=== PATIENT | female | born 1950 | race Caucasian/White ===

== ENCOUNTER 2022-12-19 09:55 | Outpatient (CLI) | payer MEDICARE, SELFPAY | END 2022-12-19 09:56 | disposition home or self-care (01) | LOC: AMB 12-21 05:31 | PROVIDERS: PCP Family Medicine; Visit Provider Family Medicine | DX: R53.1 Weakness (principal) | CPT/HCPCS: A0998 ==

== ENCOUNTER 2023-09-03 16:09 | Outpatient (CLI) | payer OTHER, SELFPAY | END 2023-09-03 16:10 | disposition home or self-care (01) | LOC: AMB 09-18 15:32 | PROVIDERS: PCP Family Medicine; Visit Provider Family Medicine | DX: R53.1 Weakness (principal) | CPT/HCPCS: A0998 ==

== ENCOUNTER 2024-08-22 21:16 | Outpatient (CLI) | payer OTHER, SELFPAY | END 2024-08-22 21:17 | disposition home or self-care (01) | LOC: AMB 08-25 14:50 | PROVIDERS: PCP Family Medicine; Visit Provider Family Medicine | DX: R53.1 Weakness (principal) | CPT/HCPCS: A0998 ==

== ENCOUNTER 2024-09-16 10:44 | Outpatient (CLI) | payer OTHER, SELFPAY | END 2024-09-16 10:45 | disposition home or self-care (01) | LOC: AMB 09-19 11:05 | PROVIDERS: PCP Family Medicine; Visit Provider Family Medicine | DX: R53.1 Weakness (principal); R62.7 Adult failure to thrive | CPT/HCPCS: A0425; A0429 ==

== ENCOUNTER 2024-09-16 11:11 | Inpatient (IN) | payer OTHER, SELFPAY ==
[2024-09-16] VITALS (23 sets, daily range): BP systolic 100–124; BP diastolic 57–90; PULSE 78–105; RESP 14–37; TEMP 36.3–36.7; O2SAT 92–99; BMI 31.6; BMI 29.7
--- NOTE | 2024-09-16 11:30 | ED.GENADULT ---
HPI - General Adult General Time Seen by Provider: 11:34 Date Seen: 09/16/24 Chief complaint: Neuro Symptoms/Altered Deficit Stated complaint: Failure to thrive Time Seen by Provider: 09/16/24 11:13 Source: patient, EMS and RN notes reviewed Mode of arrival: EMS Limitations: no limitations History of Present Illness HPI narrative: This 74-year-old female is brought in by EMS from her independent apartment at [address] after welfare check was called. Patient is known to have had an apartment well for checked 2 weeks ago. People from the facility reportedly had not seen her. She states she talked to her son last night, [facility] has the same phone number is we do for her son, it has been disconnected. Patient thinks that maybe her son did not pay his phone bill. Her phone is not charged and thus we cannot access it to see when the last time she talked to her son was, we are working on getting her phone charged. Per EMS, she was in feces, feces were all over the apartment and she was sitting in feces/urine. She had juice spilled around her mouth and chest that was dried. Her speech is noted to be slurred, she states it is been that way for couple of days. On her last apartment checked 2 weeks ago, patient was standing when they came in and went to lie down. Her blood sugar was 175, she is denying any pain but states she has been sick. She is a difficult to understand and a poor historian at this point. She does not get any meals per report, states she has been making her own meals. She cannot tell me the last time she went to the grocery store. Related Data Home Medications ?Medication ?Instructions ?Recorded ?Confirmed apixaban 5 mg tablet (Eliquis) 5 mg PO BID 09/16/24 09/16/24 bupropion HCl 100 mg tablet 100 mg PO TID 09/16/24 09/16/24 duloxetine 30 mg capsule,delayed 30 mg PO HS 09/16/24 09/16/24 release duloxetine 30 mg capsule,delayed 60 mg PO QAM 09/16/24 09/16/24 release famotidine 40 mg tablet 40 mg PO BID 09/16/24 09/16/24 gabapentin 300 mg capsule 1,200 mg PO HS 09/16/24 09/16/24 gabapentin 300 mg capsule 300 mg PO DAILY@12 03/07/25 03/07/25 gabapentin 300 mg capsule 900 mg PO QAM 09/16/24 09/16/24 hydrochlorothiazide 12.5 mg tablet 12.5 mg PO DAILY 09/16/24 09/16/24 metoprolol succinate 25 mg 25 mg PO DAILY 09/16/24 09/16/24 tablet,extended release 24 hr pantoprazole 40 mg tablet,delayed 40 mg PO BID 09/16/24 09/16/24 release Allergies Allergy/AdvReac Type Severity Reaction Status Date / Time No Known Drug Allergies Allergy Verified 09/16/24 11:29 Review of Systems Status of ROS: Reports: 6 or more systems reviewed and unremarkable except as noted in History and below Exam Const: Vital Signs, click to edit/add: Vital Signs - 24 hr 09/16/24 11:23 09/16/24 11:31 Pulse Rate [Apical ] 87 Respiratory Rate 14 Blood Pressure [Ri ght Upper Arm] 115/70 Pulse Oximetry 92 96 Oxygen Delivery Me thod Room Air Patient is disheveled, buttock/perineum covered in feces and urine on clothing as well. She is otherwise alert and interactive, speech is slurred, she has some type of reddish substance down the corner of her left face in onto her chin and chest. Lips are not cracked her dry but her oropharynx is most certainly very dry. She does seem to have symmetrical facial function, can close her eyes, conjugate gaze, sclera clear. Dentition in poor repair. Neck is supple, no masses noted. Breathing easily on room air, no tachypnea accessory muscle use, lungs are clear, good air entry, no wheezing or crackles. CV sounds regular, no murmur noted, normal S1-S2. Abdomen is soft, nontender, do not feel any masses, no distension, certainly no rebound or guarding. Her lower extremities are thicker but there is no pretibial edema, no skin changes noted. She can lift each leg off the bed. Strength about her toes and ankle dorsiflexion and plantar flexion are 5/5 and symmetric. Feet are warm. Her nail beds on her fingers looked dusky but her hands are warm and has good radial pulses. Strength testing is 5/5 and symmetric in her hands, can do normal albeit somewhat slower alternating finger movements. Documenting provider has reviewed patient's vital signs: yes Course Course ED Course: Patient has potentially weakness, potentially altered mental status, potentially cerebrovascular issue. Will start with noncontrast head CT. We absolutely do not have a last known well, could be up to 2 weeks. We are working on charging her phone to see if we can get any further information from her son. Will do full complement of labs, will get a portable chest x-ray. Am going to give her 500 mL normal saline as she certainly on physical examination has not been getting adequate oral intake, or pharynx is most definitely dry. Will consider infectious etiology, metabolic etiology as well. She will be on cardiac monitoring and pulse oximetry, obtain EKG as well. Reevaluation(s) Time of Reevaluation #1: 14:27 Reevaluation #1: Have spoken with the hospitalist Dr. Henderson. There is a mass on her CT, went back and patient really does not have any appreciable abdominal pain on examination. I did discuss with her advanced directives. She states she has paperwork at home but has not gotten it in. Did review with her that in the event something happen to her heart or lungs while at the hospital which she want compressions/chest compressions, intubation. She was adamant that she did not want this level of intervention, request to be DNR DNI. She will be going to the floor. The [facility] was here to see her. They did relate to me that they had gotten many reports on her over the last few months but today they have enough information. She states the apartment was in quite terrible shape. She did take pictures. They will be working with our social professionals while the patient is here. Consultations Consultation #1: Have spoken with hospitalist Stella Gomez. We reviewed the case. Instead of doing a portable chest x-ray, she is likely to image with chest abdomen pelvis thus we will not do the portable chest. Reviewed that I did not do a blood culture as she was meeting no criteria for requiring this based on her initial presentation. Her vital signs were stable, no fever. White count has come back elevated, she may order this if she would like this done. There certainly is very likely up possible infectious agent here or white blood count could be elevated due to do marginalization and dehydration. Patient has an acute kidney injury. Have subsequently ordered another L of normal saline. Nursing staff did try to do an in and out catheterization and there was no urine. This will still need to be collected. They do accept her on the floor. We will let the hospitalist take over management from this point and further workup. We have not been able to delineate any time frame on her symptoms, really do not know a last known well but suspect it is of some length. Patient may require further advanced head imaging but does not need to happen imminently. Time: 13:26 Vital Signs Vital signs: Initial Vital Signs Pulse Rate 87 09/16/24 11:23 Pulse Rhythm Regular 09/16/24 11:23 Respiratory Rate 14 09/16/24 11:23 Blood Pressure 115/70 09/16/24 11:23 Blood Pressure Mean 85 09/16/24 11:23 Pulse Oximetry 92 09/16/24 11:23 Oxygen Delivery Method Room Air 09/16/24 11:23 Vital Signs Pulse Rate 87 09/16/24 11:23 Respiratory Rate 14 09/16/24 11:23 Blood Pressure 115/70 09/16/24 11:23 Pulse Oximetry 92 09/16/24 11:23 Oxygen Delivery Method Room Air 09/16/24 11:23 Pulse Rate 87 09/16/24 11:23 Respiratory Rate 14 09/16/24 11:23 Blood Pressure 115/70 09/16/24 11:23 Pulse Oximetry 96 09/16/24 11:31 Oxygen Delivery Method Room Air 09/16/24 11:23 Medications Administered Medications: Discontinued Medications Generic Name Dose Route Start Last Admin Trade Name Freq PRN Reason Stop Dose Admin Sodium Chloride 500 mls @ 500 mls/hr 09/16/24 12:09 09/16/24 12:37 0.9 % Sodium Chloride 500 Ml IV 09/16/24 13:08 Infused .Q1H ONE Infusion Medical Decision Making Lab Data Lab results reviewed: Yes I reviewed the patient's lab results Labs: Lab Results 09/16/24 09/16/24 09/16/24 Range/Units 12:15 12:30 14:11 WBC 18.08 H (4.50-11.00) K/uL RBC 5.25 H (4.00-5.20) m/uL Hgb 15.6 (12.0-16.0) gm/dL Hct 46.0 (33.0-51.0) % MCV 88 (80-100) fL MCH 30 (26-34) pg MCHC 34 (32-36) gm/dL RDW Coeff of Mague 21.1 H (11.5-15.5) % Plt Count 434 (140-440) K/uL Neut % (Auto) 72.3 H (42.0-72.0) % Lymph % (Auto) 16.9 L (20-44) % [place] % (Auto) 10.0 (0.0-11.0) % Eos % (Auto) 0.1 (0.0-7.0) % Baso % (Auto) 0.1 (0.0-3.0) % Neut # (Auto) 13.10 H (1.7-7.0) K/uL Lymph # (Auto) 3.10 H (0.90-2.90) K/uL [place] # (Auto) 1.80 H (0.00-0.90) K/UL Eos # (Auto) 0.00 (0.00-0.50) K/uL Baso # (Auto) 0.00 (0.00-0.30) K/uL Abs Immat Gran (auto) 0.10 (0.00-0.30) K/uL Imm/Tot Granulo (auto) 0.6 % Diff Slide Review Acceptable Review (Acceptable) INR 1.12 H (0.91-1.10) APTT 28 (23-33) Seconds Sodium 134 L (135-149) mmol/L Potassium 3.8 (3.6-5.1) mmol/L Chloride 93 L (96-114) mmol/L Carbon Dioxide 29 (20-32) mmol/L Anion Gap 12 (7-15) mEq/L BUN 35 H (7-30) mg/dL Creatinine 2.6 H (0.5-1.5) mg/dL Estimated Creat Clear 19.73 Estimated GFR 19 ml/min Glucose 112 (60-115) mg/dL Lactate 2.5 H (0.5-1.9) mmol/L Calcium 11.5 H (8.4-10.6) mg/dL Magnesium 1.9 (1.5-2.6) mg/dL Total Bilirubin 1.2 (0.1-1.5) mg/dL Direct Bilirubin 0.8 H (0.0-0.5) mg/dL AST 103 H (12-35) U/L ALT 22 (4-35) U/L Alkaline Phosphatase 180 H (40-150) U/L Total Creatine Kinase 220 H (41-117) U/L Troponin I < 0.01 L (0.01-0.04) ng/mL C-Reactive Protein 6.6 H (0.5-1.0) mg/dL NT-Pro-B Natriuret Pep 1120 pg/mL Total Protein 6.4 (6.0-8.3) g/dL Albumin 3.7 (3.3-5.0) g/dL TSH 1.240 (0.270-4.200) uIU/mL SARS-CoV-2 (PCR) Negative SARS-CoV-2 (Negative) Influenza Type A (PCR) Negative PCR FLU A (Negative) Influenza Type B (PCR) Negative PCR FLU B (Negative) RSV (PCR) Negative PCR RSV (Negative) Lab Acknowledgement Test Added New Spec Needed Imaging Data CT scan - head: Attestation: I have reviewed the pertinent imaging results. Radiologist's impression: Patient: JONELLE STONE Facility:?[facility] Patient ID:?[id number] Site Patient ID:?[id number]. Site :?[id number] Study:?CT-Head W/O-09/16/2024 11:57:26 AM Ordering Physician:Pham Atkins Final Report: INDICATION: Altered mental status TECHNIQUE: CT head without contrast. COMPARISON: None. FINDINGS: CSF spaces: Within normal limits for age. Brain parenchyma: Diffuse cerebral atrophy with intracranial bleed or mass effect. Vázquez-white differentiation is distinct. Low-density within the deep white matter. Skull base and calvarium: Left temporomandibular joint osteoarthritis. Patchy sinus opacification the visualized orbits are grossly unremarkable. No skull fractures. Atherosclerosis. IMPRESSION: 1. No intracranial bleed or mass effect. 2. Cerebral atrophy with nonspecific white matter disease, likely microangiopathy. Please note that all CT scans at this facility use dose modulation, iterative reconstruction, and/or weight-based dosing when appropriate to reduce radiation dose to as low as reasonably achievable. Dictated by Garret Mcgee MD @ 09/16/2024 12:15:06 PM (Electronic Signature) ECG Data Attestation: I personally reviewed and interpreted this ECG as follows: (Normal sinus rhythm, 82 beats per minute. No definitive ischemia in a pattern noted.) Prior ECG tracings: not available for review Discharge Plan Discharge Clinical Impression: Acute kidney injury, Acute dehydration, Acute alteration in mental status Patient Disposition: Admitted As Observation
[2024-09-16] MEDS: 0.9 % SODIUM CHLORIDE 500 ML 500 ML IV (12:20)
[2024-09-16 12:28] LABS: Lactate* 2.5 mmol/L (0.5-1.9)
[2024-09-16 12:29] LABS: Basophils Percent Auto 0.1 % (0.0-3.0); Eosinophils Percent Auto 0.1 % (0.0-7.0); Hemoglobin* 15.6 gm/dL (12.0-16.0); Immature Granulocytes Pct Auto 0.6 %; Lymphocytes Percent Auto 16.9 % (20-44); Mean Corpuscular HGB Conc 34 gm/dL (32-36); Mean Corpuscular Hemoglobin 30 pg (26-34); Mean Corpuscular Volume 88 fL (80-100); Neutrophils Percent Auto 72.3 % (42.0-72.0); Platelet Count* 434 K/uL (140-440); RDW Coefficient of Variation % 21.1 % (11.5-15.5); Red Blood Count 5.25 m/uL (4.00-5.20); White Blood Count* 18.08 K/uL (4.50-11.00)
[2024-09-16 12:43] LABS: Albumin* 3.7 g/dL (3.3-5.0); Chloride* 93 mmol/L (96-114); Slide Review Reflex Yes
[2024-09-16 12:44] LABS: Potassium* 3.8 mmol/L (3.6-5.1); Slide Review Acceptable Review (Acceptable); Sodium* 134 mmol/L (135-149)
[2024-09-16 12:46] LABS: Blood Urea Nitrogen* 35 mg/dL (7-30); Creatinine* 2.6 mg/dL (0.5-1.5); Est. Creatinine Clearance* 19.73; Estimated Glomerular Filt Rate 19 ml/min; INR 1.12 (0.91-1.10); Prothrombin Time 15.2 Seconds
[2024-09-16 12:47] LABS: Alanine Aminotransferase* 22 U/L (4-35); Alkaline Phosphatase* 180 U/L (40-150); Anion Gap 12 mEq/L (7-15); Aspartate Amino Transferase* 103 U/L (12-35); Bilirubin Direct* 0.8 mg/dL (0.0-0.5); Bilirubin Total* 1.2 mg/dL (0.1-1.5); Calcium* 11.5 mg/dL (8.4-10.6); Carbon Dioxide* 29 mmol/L (20-32); Creatine Kinase* 220 U/L (41-117); Glucose* 112 mg/dL (60-115); Magnesium* 1.9 mg/dL (1.5-2.6); Partial Thromboplastin Time* 28 Seconds (23-33); Total Protein* 6.4 g/dL (6.0-8.3)
[2024-09-16 12:50] LABS: C Reactive Protein* 6.6 mg/dL (0.5-1.0)
[2024-09-16 13:05] LABS: NT Pro B Type NatriureticPept* 1120 pg/mL; Troponin I* < 0.01 ng/mL (0.01-0.04)
[2024-09-16 13:07] LABS: PCR FLU A Negative PCR FLU A (Negative); PCR FLU B Negative PCR FLU B (Negative); PCR RSV Negative PCR RSV (Negative); SARS PCR* Negative SARS-CoV-2 (Negative)
[2024-09-16 14:26] LABS: Lab Add On Test New Spec Needed
[2024-09-16 14:46] LABS: Ethanol* < 0.01 % (0.01-0.03)
[2024-09-16] MEDS: 0.9 % SODIUM CHLORIDE 1000 ml 1,000 ML 500 ML IV (16:43)
--- NOTE | 2024-09-16 17:01 | PC.SOCIAL ---
Social work: Received call from Lamar Saeed, [facility] [phone], who states there is an open case on this patient and [facility] would move forward on Emergency Guardianship for this patient if hospital physician will provide a Statement in Support of Emergency Guardianship and Conservatorship. Since the courts are already closed, this would not happen before Thursday. Lamar states the son is estranged from pt and phone was not connected when he was attempted to be contacted regarding hospitalization. Pt had been living at [facility] and housing worker on that campus, Estefania [phone] is aware she is a the [facility]. Attempted to call Estefania to see if she has additional contact information on file, but did not receive a call back from messages left. food prep worker to follow up on Thursday.
--- NOTE | 2024-09-16 18:02 | PM.IMHP1 ---
Hospitalist- H&P: HPI History of Present Illness Date Seen: 09/16/24 Chief complaint: Failure to thrive Narrative: Emergency department history of present illness: Vic Major is a 74 year old female brought in by EMS from her independent apartment at [address] after welfare check was called. Patient is known to have had an apartment well for checked 2 weeks ago. People from the facility reportedly had not seen her. She states she talked to her son last night, [facility] has the same phone number is we do for her son, it has been disconnected. Patient thinks that maybe her son did not pay his phone bill. Her phone is not charged and thus we cannot access it to see when the last time she talked to her son was, we are working on getting her phone charged. Per EMS, she was in feces, feces were all over the apartment and she was sitting in feces/urine. She had juice spilled around her mouth and chest that was dried. Her speech is noted to be slurred, she states it is been that way for couple of days. On her last apartment checked 2 weeks ago, patient was standing when they came in and went to lie down. Her blood sugar was 175, she is denying any pain but states she has been sick. She is a difficult to understand and a poor historian at this point. She does not get any meals per report, states she has been making her own meals. She cannot tell me the last time she went to the grocery store. Additional information on admission: Patient is ability to communicate and level of consciousness has improved on arrival to the inpatient yanes. She is oriented to being in the hospital. She recalls getting a ride here by ambulance but cannot tell me who called the ambulance or why the ambulance was called. She thinks that she was just fine yesterday but cannot give me any details of what happened yesterday or today. She does acknowledge that she is unable to walk today. This is been out ongoing problem but clearly much worse today. She tells me that she has an electric scooter in her apartment and that she walks with a cane. Today she is unable to get out of bed on her own and tells me she cannot stand without someone holding onto her. Ongoing attempts to contact her son, Ron, who lives in [place] have been unsuccessful. I have records indicating his phone number is [phone] but he does not answer at that number. The patient is unable to call on her phone. Initially it appeared that her phone battery was . After charging her phone however she does not remember how to open her phone with the password. She is unable to tell me the name of her friend and/or sister who are perhaps neighbor's or helpers for her. She also has a daughter, Vandana lives in [place]. She does not know how to contact her daughter either. She does not know her past medical history. She was seen by her primary care provider, Dr. Renae Sheets in [place] on September 06. Notes from that visit indicate and evaluation was initiated for lymphadenopathy, fever of unknown origin, abnormal weight loss, sinusitis, hypertensive chronic kidney disease, thrombocytosis, B12 deficiency, history of atrial flutter, osteoporosis, mass of her chest wall, major depression, hypo magnesemia, hypercalcemia, hypervitaminosis D. patient does not remember any of the events or evaluation was done at that time or the results of that evaluation. Review of Systems Narrative: At this time she reports no symptoms of illness, cold, cough, congestion, sore throat, chest pain, shortness of breath, abdominal pain, nausea, vomiting, diarrhea, constipation, urinary problems. [facility] Medical History (Updated 09/16/24 @ 18:32 by Trevor Henderson MD) Weakness generalized ?R53.1 - Weakness (ICD-10) History of gastroesophageal reflux (GERD) ?Z87.19 - Personal history of other diseases of the digestive system (ICD-10) Fibromyalgia ?M79.7 - Fibromyalgia (ICD-10) Osteoporosis ?M81.0 - Age-related osteoporosis without current pathological fracture (ICD-10) Major depression ?F32.9 - Major depressive disorder, single episode, unspecified (ICD-10) History of atrial flutter ?Z86.79 - Personal history of other diseases of the circulatory system (ICD-10) Weight loss, abnormal ?R63.4 - Abnormal weight loss (ICD-10) Fever of unknown origin ?R50.9 - Fever, unspecified (ICD-10) Hypercalcemia ?E83.52 - Hypercalcemia (ICD-10) Metabolic encephalopathy ?G93.41 - Metabolic encephalopathy (ICD-10) Lymphadenopathy, generalized ?R59.1 - Generalized enlarged lymph nodes (ICD-10) Surgical History (Updated 09/16/24 @ 18:22 by Trevor Henderson MD) History of colonoscopy ?Z98.890 - Other specified postprocedural states (ICD-10) History of knee replacement procedure of right knee ?Z96.651 - Presence of right artificial knee joint (ICD-10) History of sinus surgery ?Z98.890 - Other specified postprocedural states (ICD-10) History of tubal ligation ?Z98.51 - Tubal ligation status (ICD-10) History of lithotripsy ?Z98.890 - Other specified postprocedural states (ICD-10) History of Odilon-en-Y gastric bypass ?Z98.84 - Bariatric surgery status (ICD-10) History of cholecystectomy ?Z90.49 - Acquired absence of other specified parts of digestive tract (ICD-10) History of appendectomy ?Z90.49 - Acquired absence of other specified parts of digestive tract (ICD-10) Social History What is your current living situation?: I presently have a place to live Problems where you live: unable to answer Problems where you live details: Pt. said there are no problems In the past 12 months, utilities in danger of being shut off: no In past 12 months, lack of transportation kept you from medical appts, meetings, work, or getting things needed for daily living: no In the past 12 mos, have been you worried that your food would run out before you had money to buy more?: never true In the past 12 mos, the food you bought just didn't last and you didn't have money to buy more?: never true Highest level of school completed/degree received: some college, no degree Smoking Status: Never smoker Do you use any of these nicotine containing products: None Second hand tobacco smoke exposure: No How often do you have a drink containing alcohol: never How often do you have six or more drinks on one occasion: Never AUDIT-C Alcohol total score: 0 Non-prescribed substance use: denies use Caffeine: No How often does anyone, including family, friends and others, physically hurt you: never How often does anyone, including family, friends and others, insult or talk down to you: never How often does anyone, including family, friends and others, threaten you with harm: never How often does anyone, including family, friends and others, scream or curse at you: never service: No Meds Home Medications and Allergies Home Medications ?Medication ?Instructions ?Recorded ?Confirmed ?Type apixaban 5 mg tablet (Eliquis) 5 mg PO BID 09/16/24 09/16/24 History bupropion HCl 100 mg tablet 100 mg PO TID 09/16/24 09/16/24 History duloxetine 30 mg capsule,delayed 30 mg PO HS 09/16/24 09/16/24 History release duloxetine 30 mg capsule,delayed 60 mg PO QAM 09/16/24 09/16/24 History release famotidine 40 mg tablet 40 mg PO BID 09/16/24 09/16/24 History gabapentin 300 mg capsule 1,200 mg PO HS 09/16/24 09/16/24 History gabapentin 300 mg capsule 300 mg PO DAILY@12 09/16/24 09/16/24 History gabapentin 300 mg capsule 900 mg PO QAM 09/16/24 09/16/24 History hydrochlorothiazide 12.5 mg tablet 12.5 mg PO DAILY 09/16/24 09/16/24 History metoprolol succinate 25 mg 25 mg PO DAILY 09/16/24 09/16/24 History tablet,extended release 24 hr pantoprazole 40 mg tablet,delayed 40 mg PO BID 09/16/24 09/16/24 History release Allergies Allergy/AdvReac Type Severity Reaction Status Date / Time No Known Drug Allergies Allergy Verified 09/16/24 11:29 Exam Const: Vital Signs, click to edit/add: Vital Signs - 24 hr 09/16/24 11:11 09/16/24 11:23 09/16/24 11:31 Temperature 97.4 F L Pulse Rate Pulse Rate [Apical ] 87 Pulse Rate [Pulse Oximeter] Respiratory Rate 14 Blood Pressure Blood Pressure [Le ft Arm] Blood Pressure [Ri ght Upper Arm] 115/70 Pulse Oximetry 92 96 Oxygen Delivery Me thod Room Air 09/16/24 11:47 09/16/24 12:12 09/16/24 12:14 Temperature Pulse Rate 82 Pulse Rate [Apical ] Pulse Rate [Pulse Oximeter] Respiratory Rate 26 H 26 H 20 Blood Pressure 106/74 Blood Pressure [Le ft Arm] Blood Pressure [Ri ght Upper Arm] Pulse Oximetry Oxygen Delivery Me thod Room Air 09/16/24 12:15 09/16/24 12:30 09/16/24 12:33 Temperature Pulse Rate 83 83 Pulse Rate [Apical ] Pulse Rate [Pulse Oximeter] Respiratory Rate 18 37 H 18 Blood Pressure 105/57 L Blood Pressure [Le ft Arm] Blood Pressure [Ri ght Upper Arm] Pulse Oximetry 93 95 Oxygen Delivery [facility] Room Air 09/16/24 12:45 09/16/24 13:00 09/16/24 13:02 Temperature Pulse Rate 78 82 84 Pulse Rate [Apical ] Pulse Rate [Pulse Oximeter] Respiratory Rate 20 16 23 Blood Pressure 104/79 Blood Pressure [Le ft Arm] Blood Pressure [Ri ght Upper Arm] Pulse Oximetry 94 99 95 Oxygen Delivery [facility] Room Air 09/16/24 13:15 09/16/24 13:30 09/16/24 13:32 Temperature Pulse Rate 84 83 Pulse Rate [Apical ] Pulse Rate [Pulse Oximeter] Respiratory Rate 20 20 20 Blood Pressure 124/90 H Blood Pressure [Le ft Arm] Blood Pressure [Ri ght Upper Arm] Pulse Oximetry 93 Oxygen Delivery [facility] Room Air 09/16/24 13:45 09/16/24 14:01 09/16/24 14:02 Temperature Pulse Rate 86 85 Pulse Rate [Apical ] Pulse Rate [Pulse Oximeter] Respiratory Rate 19 21 15 Blood Pressure 110/63 Blood Pressure [Le ft Arm] Blood Pressure [Ri ght Upper Arm] Pulse Oximetry 96 92 Oxygen Delivery [facility] Room Air 09/16/24 14:15 09/16/24 14:20 09/16/24 14:20 Temperature 98.1 F Pulse Rate Pulse Rate [Apical ] Pulse Rate [Pulse Oximeter] 84 Respiratory Rate 20 20 20 Blood Pressure Blood Pressure [Le ft Arm] 124/75 Blood Pressure [Ri ght Upper Arm] Pulse Oximetry 93 93 Oxygen Delivery [facility] Room Air Room Air 09/16/24 15:00 Temperature Pulse Rate Pulse Rate [Apical ] Pulse Rate [Pulse Oximeter] 84 Respiratory Rate 20 Blood Pressure Blood Pressure [Le ft Arm] Blood Pressure [Ri ght Upper Arm] Pulse Oximetry Oxygen Delivery [facility] Hospitalist - H&P: Result Labs Labs: Short CBC 09/16/24 Range/Units 12:15 WBC 18.08 H (4.50-11.00) K/uL Hgb 15.6 (12.0-16.0) gm/dL Hct 46.0 (33.0-51.0) % Plt Count 434 (140-440) K/uL BMP 09/16/24 12:15 Sodium 134 L Potassium 3.8 Chloride 93 L Carbon Dioxide 29 BUN 35 H Creatinine 2.6 H Glucose 112 Calcium 11.5 H Cardiac Enzymes 09/16/24 Range/Units 12:15 Total Creatine Kinase 220 H (41-117) U/L Troponin I < 0.01 L (0.01-0.04) ng/mL Liver Function 09/16/24 Range/Units 12:15 Total Bilirubin 1.2 (0.1-1.5) mg/dL Direct Bilirubin 0.8 H (0.0-0.5) mg/dL AST 103 H (12-35) U/L ALT 22 (4-35) U/L Alkaline Phosphatase 180 H (40-150) U/L Albumin 3.7 (3.3-5.0) g/dL ECG Attestation: I personally reviewed and interpreted this ECG as follows: (Normal sinus rhythm, nonspecific ST-T changes.) ECG interpretation date: 09/16/[address] Chest/Ab/Pelvis: Radiologist's impression: Indication: Found down, poor historian, leukocytosis Technique: Volumetric multidetector CT images of the chest, abdomen, and pelvis were obtained without the administration of intravenous contrast. Comparison: None available. FINDINGS: CHEST There are bulky lymph nodes seen within the supraclavicular and infraclavicular clavicular spaces. The thyroid is atrophic. Otherwise the thoracic inlet is grossly unremarkable. The thoracic aorta is nonaneurysmal. The trachea and bronchi are well aerated. There is minimal basilar atelectasis and likely parenchymal scar with minimal air trapping. No dense consolidation, effusion or pneumothorax. There are markedly enlarged right greater than left axillary lymph nodes and chest wall lymph nodes. Additional adenopathy is seen within the pericardial space. The thoracic osseus structures are intact without fracture, lytic, or blastic lesion. The thoracic vertebral body heights are grossly maintained with minimal endplate Schmorl`s defects. There is no significant spondylolisthesis or displaced fracture. ABDOMEN AND PELVIS The liver demonstrates a somewhat nodular liver contour. No focal abnormality. There is likely splenosis in the left upper quadrant abdomen. There is prior cholecystectomy. There is no intrahepatic or common ductal dilatation. Postoperative changes of the stomach status post Odilon-en-Y gastric bypass. There is mild to moderate pancreatic atrophy. The adrenal glands are unremarkable without evidence of adenoma. There is demonstration of a staghorn calculus in the right collecting system with marked atrophy and chronic obstructive changes. The left kidney is grossly unremarkable. There are mildly dilated fluid-filled loops of mid to distal small bowel with nonspecific thickening of the distal colon and mild questionable pericolonic inflammation. The appendix is not well visualized. The abdominal aorta is nonaneurysmal without significant atherosclerotic disease. The pelvic viscera are otherwise grossly unremarkable. There are extensive pathologically enlarged retroperitoneal and central mesenteric lymph nodes with a conglomerate anna mass in the left lower quadrant mesentery that measures up to 14 centimeters. Additional markedly enlarged pelvic sidewall and inguinal lymph nodes are appreciated. There is moderate omental caking seen within the predominantly left hemiabdomen. The anterior abdominal wall is grossly intact without significant hernias. There is no free air or free fluid. Degenerative changes of the bilateral hips and sacroiliac joints are appreciated with somewhat sclerotic appearance of the left iliac bone. The lumbar vertebral body heights are grossly maintained with minimal endplate Schmorl`s defects. Impression: 1. Demonstration of markedly pathologic lymph nodes seen throughout the chest, abdomen and pelvis most prominently within the right axilla and left lower quadrant mesentery with a conglomerate up to 14 centimeter lymph node mass in the left lower quadrant abdomen. There is moderate omental caking. Overall, findings are concerning for likely lymphoproliferative malignancy such as lymphoma. Correlate with history of malignancy and/or follow-up with percutaneous tissue sampling of easily accessible lymph node in the right axilla for improved characterization. 2. Mild nonspecific thickening of the distal colon with pericolonic inflammation which may represent mild colitis changes. 3. No other acute abnormalities of the chest, abdomen or pelvis. CT scan - head: Radiologist's impression: INDICATION: Altered mental status TECHNIQUE: CT head without contrast. COMPARISON: None. FINDINGS: CSF spaces: Within normal limits for age. Brain parenchyma: Diffuse cerebral atrophy with intracranial bleed or mass effect. Vázquez-white differentiation is distinct. Low-density within the deep white matter. Skull base and calvarium: Left temporomandibular joint osteoarthritis. Patchy sinus opacification the visualized orbits are grossly unremarkable. No skull fractures. Atherosclerosis. IMPRESSION: 1. No intracranial bleed or mass effect. 2. Cerebral atrophy with nonspecific white matter disease, likely microangiopathy. Assessment and Plan Assessment and plan (1) Metabolic encephalopathy: Problem comment: Patient had severely impaired cognitive function on admission 09/16/2024 having been found at home unable to get out of bed, care for herself or call for help. Modestly improved with fluid hydration. Suspect multiple contributing causes. For now will reduce large doses of psychoactive medications such as gabapentin and continue to monitor and evaluate. Appears unable to care for herself at this time. Status: Acute (2) Acute kidney injury: Problem comment: Creatinine 1.2 on 09/06/2024. Creatinine 2.6 on this admission. Primarily due to dehydration? Status: Acute (3) Acute dehydration: Status: Acute (4) Lymphadenopathy, generalized: Problem comment: CT chest abdomen pelvis on 09/16/2024 shows:1. Demonstration of markedly pathologic lymph nodes seen throughout the chest, abdomen and pelvis most prominently within the right axilla and left lower quadrant mesentery with a conglomerate up to 14 centimeter lymph node mass in the left lower quadrant abdomen. There is moderate omental caking. Overall, findings are concerning for likely lymphoproliferative malignancy such as lymphoma. Correlate with history of malignancy and/or follow-up with percutaneous tissue sampling of easily accessible lymph node in the right axilla for improved characterization. Eventually will need biopsy to further evaluate. Depending on clinical course consider evaluation for leptomeningeal lymphoma to investigate altered mental status. Status: Acute (5) Hypercalcemia: Problem comment: Calcium 11.9 on 09/06/2024. Status: Acute (6) Fever of unknown origin: Problem comment: Reported by her primary care doctor on 09/06/2024. Details are unclear. Status: Acute (7) Weight loss, abnormal: Problem comment: Reported by her primary care doctor on 09/06/2024. Details unclear Status: Acute (8) History of atrial flutter: Problem comment: Noted in her chart. On Eliquis and metoprolol. Currently in sinus rhythm Status: Acute (9) Major depression: Problem comment: Details unclear. Continue home medications. Status: Acute (10) UTI (urinary tract infection): Problem comment: Not reporting symptoms but unreliable historian. Markedly abnormal urine. Treat pending culture and clinical course Status: Acute (11) Weakness generalized: Problem comment: Relatively profound bilateral lower extremity weakness. Unable to lift either leg off the bed. 3/5 strength in hip flexion. 4/5 strength in knee flexion and extension. 5/5 strength in ankle dorsiflexion and plantar flexion. Status: Acute Plan 74-year-old female with what sounds like a chronic decline now with acute decline including metabolic encephalopathy and altered mental status, acute on chronic weakness, acute on chronic kidney disease, chronic hypercalcemia, generalized lymphadenopathy, probable UTI. Anticipate several days in a hospital to evaluate and treat these multiple concerns. Total Time Spent Total Time Spent: Total time spent today is 90 minutes in coordination of care, reviewing outside records, discussing with patient and other providers ongoing plan of care.
[2024-09-16 18:11] LABS: Hemoglobin A1C* 4.9 % (0-5.6)
[2024-09-16 18:24] LABS: Appearance Urine Cloudy (Clear); Bilirubin Urine 1+ (Negative); Blood Urine 3+ (Negative); Color Urine Brown (Yellow); Glucose Urine Negative (Negative); Ketones Urine Trace (Negative); Leukocyte Esterase Urine 3+ (Negative); Nitrite Urine Negative (Negative); Protein Urine 2+ (Negative); Specific Gravity Urine 1.025 (1.000-1.030); Urobilinogen Urine 0.2 (0.2-1.0); pH Urine 5.5 (5.0-8.5)
[2024-09-16] MEDS: POTASSIUM CHLORIDE 10 MEQ in 0.9 % SODIUM CHLORIDE 1000 ml 1,000 ML 150 MEQ IV (18:24)
[2024-09-16 18:44] LABS: Bacteria Urine Moderate
[2024-09-16 18:55] LABS: Lactate* 1.6 mmol/L (0.5-1.9)
[2024-09-16 19:08] LABS: Amphetamine Screen Urine Negative (Negative); Barbiturate Screen Urine Negative (Negative); Benzodiazepines Screen Urine Negative (Negative); Cannabinoid Screen Urine Negative (Negative); Cocaine Screen Urine Negative (Negative); Methadone Screen Urine Negative (Negative); Methamphetamines Screen Urine Negative (Negative); Opiate Screen Urine Negative (Negative); Oxycodone Screen Urine Negative (Negative); Phencyclidine Screen Urine Negative (Negative); Tricyclic Antidepressant Urine Negative (Negative)
[2024-09-16 19:26] LABS: Iron* 49 ug/dL (37-170)
[2024-09-16 19:27] LABS: Calcium* 10.4 mg/dL (8.4-10.6)
[2024-09-16 19:36] LABS: Percent Iron Saturation 19 % (20-50); Total Iron Binding Capacity 259 ug/dL (265-497)
[2024-09-16] MEDS: DULOXETINE 30 MG CAPSULE DR PO (20:08)
[2024-09-16] MEDS: OMEPRAZOLE 20 MG CAPSULE DR 40 MG PO (20:08)
[2024-09-16] MEDS: SODIUM CHLORIDE 0.9 % (FLUSH) 10 ML SYRINGE 5 ML IVF (20:09)
[2024-09-16] MEDS: buPROPion HCL 100 MG TAB.SR.12H PO (20:09)
[2024-09-16] MEDS: APIXABAN 5 MG TABLET PO (20:09)
[2024-09-16] MEDS: GABAPENTIN 300 MG CAPSULE 600 MG PO (20:09)
[2024-09-16] MEDS: FAMOTIDINE 20 MG TABLET 40 MG PO (20:09)
[2024-09-17] MEDS: POTASSIUM CHLORIDE 10 MEQ in 0.9 % SODIUM CHLORIDE 1000 ml 1,000 ML 150 MEQ IV (00:59)
[2024-09-17 03:00] VITALS: BP 107/65; PULSE 108; RESP 18; TEMP 36.8; O2SAT 92
--- NOTE | 2024-09-17 05:27 | PC.NURSE ---
[id number] Pt slept during night, incontinent of bowel and bladder. oriented to self, unable to recollect events leading up to hospitalization and poor memory with hospital environment/call light use, educated and return demonstration done frequently during shift. repositioned during night. denies pain, chest pain/headache, N/V. loose stools.
[2024-09-17 06:38] LABS: Basophils Percent Auto 0.2 % (0.0-3.0); Eosinophils Percent Auto 0.2 % (0.0-7.0); Hematocrit 38.5 % (33.0-51.0); Immature Granulocytes Pct Auto 0.6 %; Lymphocytes Percent Auto 20.7 % (20-44); Mean Corpuscular HGB Conc 34 gm/dL (32-36); Mean Corpuscular Hemoglobin 30 pg (26-34); Mean Corpuscular Volume 87 fL (80-100); Monocytes Percent Auto 11.6 % (0.0-11.0); Neutrophils Percent Auto 66.7 % (42.0-72.0); Platelet Count* 382 K/uL (140-440); RDW Coefficient of Variation % 20.1 % (11.5-15.5); Red Blood Count 4.41 m/uL (4.00-5.20); White Blood Count* 16.03 K/uL (4.50-11.00)
[2024-09-17] MEDS: OMEPRAZOLE 20 MG CAPSULE DR 40 MG PO (06:39)
[2024-09-17 06:48] LABS: Slide Review Reflex No
[2024-09-17 06:49] LABS: Albumin* 2.9 g/dL (3.3-5.0); Chloride* 100 mmol/L (96-114)
[2024-09-17 06:50] LABS: Potassium* 3.8 mmol/L (3.6-5.1); Sodium* 133 mmol/L (135-149)
[2024-09-17 06:52] LABS: Blood Urea Nitrogen* 35 mg/dL (7-30); Est. Creatinine Clearance* 25.65; Estimated Glomerular Filt Rate 26 ml/min
[2024-09-17 06:53] LABS: Alanine Aminotransferase* 17 U/L (4-35); Alkaline Phosphatase* 139 U/L (40-150); Anion Gap 10 mEq/L (7-15); Aspartate Amino Transferase* 68 U/L (12-35); Bilirubin Direct* 0.5 mg/dL (0.0-0.5); Bilirubin Total* 1.1 mg/dL (0.1-1.5); Calcium* 9.5 mg/dL (8.4-10.6); Carbon Dioxide* 23 mmol/L (20-32); Glucose* 87 mg/dL (60-115); Total Protein* 5.3 g/dL (6.0-8.3)
[2024-09-17 06:59] LABS: PTH Intact* 16.9 pg/mL (14.2-75.2)
[2024-09-17 07:00] VITALS: BP 116/70; PULSE 106; RESP 18; O2SAT 97
[2024-09-17 07:09] LABS: C Reactive Protein* 16.7 mg/dL (0.5-1.0)
[2024-09-17] MEDS: buPROPion HCL 100 MG TAB.SR.12H PO ×3 (09:28→20:06)
[2024-09-17] MEDS: DULOXETINE 30 MG CAPSULE DR 60 MG PO (09:28)
[2024-09-17] MEDS: GABAPENTIN 300 MG CAPSULE 600 MG PO ×2 (09:28→20:05)
[2024-09-17] MEDS: METOPROLOL SUCCINATE (XL) 25 MG TAB PO (09:28)
[2024-09-17] MEDS: FAMOTIDINE 20 MG TABLET 40 MG PO ×2 (09:29→20:06)
[2024-09-17] MEDS: APIXABAN 5 MG TABLET PO ×2 (09:29→20:05)
[2024-09-17] MEDS: SODIUM CHLORIDE 0.9 % (FLUSH) 10 ML SYRINGE 5 ML IVF ×2 (09:29→20:06)
[2024-09-17 11:00] VITALS: BP 96/67; PULSE 97; RESP 18; TEMP 36.5; O2SAT 97
[2024-09-17] MEDS: GABAPENTIN 300 MG CAPSULE PO (14:37)
[2024-09-17 15:10] VITALS: BP 98/72; PULSE 96; RESP 18; TEMP 36.8; O2SAT 94
--- NOTE | 2024-09-17 16:06 | PM.IMPN1 ---
Progress Note: A&P Assessment and plan (1) Metabolic encephalopathy: Problem details: Patient had severely impaired cognitive function on admission 09/16/2024 having been found at home unable to get out of bed, care for herself or call for help. Modestly improved with fluid hydration. Suspect multiple contributing causes. For now will reduce large doses of psychoactive medications such as gabapentin and continue to monitor and evaluate. Appears unable to care for herself at this time. Possibility of lymphoma and leptomeningeal disease present. Obtain MRI. Status: Acute (2) Acute kidney injury: Problem details: Creatinine 1.2 on 09/06/2024. Creatinine 2.6 on this admission. Creatinine 2.0 today. I suspect her KATIE is due to dehydration Status: Acute (3) Acute dehydration: Problem details: Likely unable to manage to obtain and eat food or drink fluid for the last few days. Status: Acute (4) Lymphadenopathy, generalized: Problem details: CT chest abdomen pelvis on 09/16/2024 shows:1. Demonstration of markedly pathologic lymph nodes seen throughout the chest, abdomen and pelvis most prominently within the right axilla and left lower quadrant mesentery with a conglomerate up to 14 centimeter lymph node mass in the left lower quadrant abdomen. There is moderate omental caking. Overall, findings are concerning for likely lymphoproliferative malignancy such as lymphoma. Correlate with history of malignancy and/or follow-up with percutaneous tissue sampling of easily accessible lymph node in the right axilla for improved characterization. Eventually will need biopsy to further evaluate. Depending on clinical course consider evaluation for leptomeningeal lymphoma to investigate altered mental status. Status: Acute (5) Hypercalcemia: Problem details: Calcium 11.9 on 09/06/2024. Calcium improved from 11.5 on admission to 9.5 today with hydration. Status: Acute (6) Fever of unknown origin: Problem details: Reported by her primary care doctor on 09/06/2024. Details are unclear. Continue to monitor Status: Acute (7) Weight loss, abnormal: Problem details: Reported by her primary care doctor on 09/06/2024. Details unclear. Continue to monitor Status: Acute (8) History of atrial flutter: Problem details: Noted in her chart. On Eliquis and metoprolol. Currently in sinus rhythm Status: Acute (9) Major depression: Problem details: Details unclear. Continue home medications. Status: Acute (10) UTI (urinary tract infection): Problem details: Not reporting symptoms but unreliable historian. Markedly abnormal urine. Treat pending culture and clinical course Status: Acute (11) Weakness generalized: Problem details: Relatively profound bilateral lower extremity weakness. Unable to lift either leg off the bed. 3/5 strength in hip flexion. 4/5 strength in knee flexion and extension. 5/5 strength in ankle dorsiflexion and plantar flexion. Status: Acute Plan Patient will continue in hospital for evaluation of her acute and chronic disabilities, her presumed minute lymphoma or metastatic disease, her metabolic encephalopathy. Time Spent With Patient Total time spent: Total time spent today is 40 minutes in coordination of care and discussing with other providers ongoing evaluation management severe neurologic deficits Subjective Date Seen: 09/17/24 Interval history: Emergency department history of present illness: Vic Major is a 74 year old female brought in by EMS from her independent apartment at [address] after welfare check was called. Patient is known to have had an apartment well for checked 2 weeks ago. People from the facility reportedly had not seen her. She states she talked to her son last night, [facility] has the same phone number is we do for her son, it has been disconnected. Patient thinks that maybe her son did not pay his phone bill. Her phone is not charged and thus we cannot access it to see when the last time she talked to her son was, we are working on getting her phone charged. Per EMS, she was in feces, feces were all over the apartment and she was sitting in feces/urine. She had juice spilled around her mouth and chest that was dried. Her speech is noted to be slurred, she states it is been that way for couple of days. On her last apartment checked 2 weeks ago, patient was standing when they came in and went to lie down. Her blood sugar was 175, she is denying any pain but states she has been sick. She is a difficult to understand and a poor historian at this point. She does not get any meals per report, states she has been making her own meals. She cannot tell me the last time she went to the grocery store. Additional information on admission: Patient is ability to communicate and level of consciousness has improved on arrival to the inpatient yanes. She is oriented to being in the hospital. She recalls getting a ride here by ambulance but cannot tell me who called the ambulance or why the ambulance was called. She thinks that she was just fine yesterday but cannot give me any details of what happened yesterday or today. She does acknowledge that she is unable to walk today. This is been out ongoing problem but clearly much worse today. She tells me that she has an electric scooter in her apartment and that she walks with a cane. Today she is unable to get out of bed on her own and tells me she cannot stand without someone holding onto her. Ongoing attempts to contact her son, Ron, who lives in [place] have been unsuccessful. I have records indicating his phone number is [phone] but he does not answer at that number. The patient is unable to call on her phone. Initially it appeared that her phone battery was . After charging her phone however she does not remember how to open her phone with the password. She is unable to tell me the name of her friend and/or sister who are perhaps neighbor's or helpers for her. She also has a daughter, Vandana lives in [place]. She does not know how to contact her daughter either. She does not know her past medical history. She was seen by her primary care provider, Dr. Renae Sheets in [place] on September 06. Notes from that visit indicate and evaluation was initiated for lymphadenopathy, fever of unknown origin, abnormal weight loss, sinusitis, hypertensive chronic kidney disease, thrombocytosis, B12 deficiency, history of atrial flutter, osteoporosis, mass of her chest wall, major depression, hypo magnesemia, hypercalcemia, hypervitaminosis D. patient does not remember any of the events or evaluation was done at that time or the results of that evaluation. Patient has remained relatively stable vitals but appears increasingly neurologically and functionally disabled. This morning she was unable to feed herself breakfast. She is basically unable to do any simple tasks. She is increasingly having difficulty communicating. Appears to lack insight into any of her current disabilities. Still unable to reach her family by phone. Patient is unable to get into her own phone. Exam Narrative: Exam Narrative: She is alert and appears comfortable. She is unable to answer simple questions. She has difficulties with word finding and communication no slurring of speech. Somewhat rambling in conversation. Head is without trauma. Eyes normal. Oropharynx normal. Neck is supple without mass or adenopathy. Respirations are clear to auscultation. Cardiovascular: S1, S2, regular rate and rhythm. No murmur gallop or rub. Abdomen: Bowel sounds active. Abdomen is soft with no tenderness or mass. Extremities with 2+ edema. She is observed to move her arms with some weakness and fairly severe apraxia, unable to eat eggs with a fork, profoundly weak in her legs. Const: Vital Signs, click to edit/add: Vital Signs - 24 hr 09/16/24 19:00 09/16/24 22:21 09/17/24 03:00 Temperature 98.0 F 97.8 F 98.3 F Pulse Rate [Pulse Oximeter] 87 105 H 108 H Respiratory Rate 18 16 18 Blood Pressure [Le ft Arm] 111/72 100/59 L 107/65 Pulse Oximetry 99 95 92 Oxygen Delivery Me thod Room Air Room Air Room Air 09/17/24 07:00 09/17/24 07:00 09/17/24 11:00 Temperature 97.7 F Pulse Rate [Pulse Oximeter] 106 H 106 H 97 Respiratory Rate 18 18 18 Blood Pressure [Le ft Arm] 116/70 96/67 Pulse Oximetry 97 97 Oxygen Delivery Me thod Room Air Room Air Documenting provider has reviewed patient's vital signs: yes Labs Labs: Laboratory Results - last 24 hr 09/16/24 09/16/24 09/16/24 12:15 14:20 16:38 WBC RBC Hgb Hct MCV MCH MCHC RDW Coeff of Mague Plt Count Neut % (Auto) Lymph % (Auto) Sargent % (Auto) Eos % (Auto) Baso % (Auto) Neut # (Auto) Lymph # (Auto) Sargent # (Auto) Eos # (Auto) Baso # (Auto) Abs Immat Gran (auto) Imm/Tot Granulo (auto) Sodium Potassium Chloride Carbon Dioxide Anion Gap BUN Creatinine Estimated Creat Clear Estimated GFR Glucose Hemoglobin A1c 4.9 Lactate Calcium Iron 49 TIBC 259 L % Saturation 19 L Total Bilirubin Direct Bilirubin AST ALT Alkaline Phosphatase C-Reactive Protein Total Protein Albumin PTH Intact Urine Color Urine Appearance Urine pH Ur Specific Millis Urine Protein Urine Glucose (UA) Urine Ketones Urine Blood Urine Nitrite Urine Bilirubin Urine Urobilinogen Ur Leukocyte Esterase Urine RBC Urine WBC Ur Squamous Epith Cells Urine Bacteria Urine Opiates Screen Negative Ur Oxycodone Screen Negative Urine Methadone Screen Negative Ur Barbiturates Screen Negative U Tricyclic Antidepress Negative Ur Phencyclidine Scrn Negative Ur Amphetamines Screen Negative U Methamphetamines Scrn Negative U Benzodiazepines Scrn Negative Urine Cocaine Screen Negative U Marijuana (THC) Screen Negative Ur Drug Screen Comment See Note Lab Acknowledgement Test Added 09/16/24 09/16/24 09/16/24 18:00 18:43 18:50 WBC RBC Hgb Hct MCV MCH MCHC RDW Coeff of Mague Plt Count Neut % (Auto) Lymph % (Auto) Sargent % (Auto) Eos % (Auto) Baso % (Auto) Neut # (Auto) Lymph # (Auto) Sargent # (Auto) Eos # (Auto) Baso # (Auto) Abs Immat Gran (auto) Imm/Tot Granulo (auto) Sodium Potassium Chloride Carbon Dioxide Anion Gap BUN Creatinine Estimated Creat Clear Estimated GFR Glucose Hemoglobin A1c Lactate 1.6 Calcium 10.4 Iron TIBC % Saturation Total Bilirubin Direct Bilirubin AST ALT Alkaline Phosphatase C-Reactive Protein Total Protein Albumin PTH Intact Urine Color Brown A Urine Appearance Cloudy A Urine pH 5.5 Ur Specific Millis 1.025 Urine Protein 2+ A Urine Glucose (UA) Negative Urine Ketones Trace A Urine Blood 3+ A Urine Nitrite Negative Urine Bilirubin 1+ A Urine Urobilinogen 0.2 Ur Leukocyte Esterase 3+ A Urine RBC 10-25 A Urine WBC 10-25 A Ur Squamous Epith Cells None Urine Bacteria Moderate A Urine Opiates Screen Ur Oxycodone Screen Urine Methadone Screen Ur Barbiturates Screen U Tricyclic Antidepress Ur Phencyclidine Scrn Ur Amphetamines Screen U Methamphetamines Scrn U Benzodiazepines Scrn Urine Cocaine Screen U Marijuana (THC) Screen Ur Drug Screen Comment Lab Acknowledgement Test Added 09/17/24 05:33 WBC 16.03 H RBC 4.41 Hgb 13.0 Hct 38.5 MCV 87 MCH 30 MCHC 34 RDW Coeff of Mague 20.1 H Plt Count 382 Neut % (Auto) 66.7 Lymph % (Auto) 20.7 Sargent % (Auto) 11.6 H Eos % (Auto) 0.2 Baso % (Auto) 0.2 Neut # (Auto) 10.70 H Lymph # (Auto) 3.30 H Sargent # (Auto) 1.90 H Eos # (Auto) 0.00 Baso # (Auto) 0.00 Abs Immat Gran (auto) 0.10 Imm/Tot Granulo (auto) 0.6 Sodium 133 L Potassium 3.8 Chloride 100 Carbon Dioxide 23 Anion Gap 10 BUN 35 H Creatinine 2.0 H Estimated Creat Clear 25.65 Estimated GFR 26 Glucose 87 Hemoglobin A1c Lactate Calcium 9.5 Iron TIBC % Saturation Total Bilirubin 1.1 Direct Bilirubin 0.5 AST 68 H ALT 17 Alkaline Phosphatase 139 C-Reactive Protein 16.7 H Total Protein 5.3 L Albumin 2.9 L PTH Intact 16.9 Urine Color Urine Appearance Urine pH Ur Specific Millis Urine Protein Urine Glucose (UA) Urine Ketones Urine Blood Urine Nitrite Urine Bilirubin Urine Urobilinogen Ur Leukocyte Esterase Urine RBC Urine WBC Ur Squamous Epith Cells Urine Bacteria Urine Opiates Screen Ur Oxycodone Screen Urine Methadone Screen Ur Barbiturates Screen U Tricyclic Antidepress Ur Phencyclidine Scrn Ur Amphetamines Screen U Methamphetamines Scrn U Benzodiazepines Scrn Urine Cocaine Screen U Marijuana (THC) Screen Ur Drug Screen Comment Lab Acknowledgement
--- NOTE | 2024-09-17 19:57 | PC.NURSE ---
spoke with Daughter Cliff [phone] whom lives in [place], she will be leaving to drive up Thursday morning; expect to arrive shortly after lunch.
--- NOTE | 2024-09-17 19:58 | PC.NURSE ---
Pt incontinent of bowel and bladder. Needing assistance with feeding. Turn/Repo Q2H or when pt requests. Family will arrive Thursday to have care conference with Doctor.
[2024-09-17 20:00] VITALS: BP 111/67; PULSE 91; RESP 18; TEMP 36.5; O2SAT 92
[2024-09-17] MEDS: DULOXETINE 30 MG CAPSULE DR PO (20:05)
[2024-09-17 23:00] VITALS: BP 103/66; PULSE 91; RESP 18; TEMP 36.7; O2SAT 93
[2024-09-18 03:00] VITALS: BP 110/60; PULSE 90; RESP 18; TEMP 36.8; O2SAT 95
[2024-09-18] MEDS: OMEPRAZOLE 20 MG CAPSULE DR 40 MG PO (06:39)
[2024-09-18 06:54] LABS: Basophils Percent Auto 0.3 % (0.0-3.0); Eosinophils Percent Auto 0.9 % (0.0-7.0); Hematocrit 37.9 % (33.0-51.0); Immature Granulocytes Pct Auto 0.8 %; Lymphocytes Percent Auto 26.7 % (20-44); Mean Corpuscular HGB Conc 34 gm/dL (32-36); Mean Corpuscular Hemoglobin 30 pg (26-34); Mean Corpuscular Volume 89 fL (80-100); Monocytes Percent Auto 13.2 % (0.0-11.0); Neutrophils Percent Auto 58.1 % (42.0-72.0); Platelet Count* 375 K/uL (140-440); RDW Coefficient of Variation % 20.5 % (11.5-15.5); Red Blood Count 4.27 m/uL (4.00-5.20); White Blood Count* 13.59 K/uL (4.50-11.00)
[2024-09-18 06:56] LABS: Slide Review Reflex No
[2024-09-18 07:00] VITALS: BP 118/87; PULSE 88; PULSE 92; RESP 18; TEMP 36.8; O2SAT 92
[2024-09-18 07:04] LABS: Chloride* 98 mmol/L (96-114); Potassium* 3.7 mmol/L (3.6-5.1); Sodium* 132 mmol/L (135-149)
[2024-09-18 07:06] LABS: Blood Urea Nitrogen* 35 mg/dL (7-30); Creatinine* 1.7 mg/dL (0.5-1.5); Est. Creatinine Clearance* 30.18; Estimated Glomerular Filt Rate 32 ml/min
[2024-09-18 07:07] LABS: Anion Gap 8 mEq/L (7-15); Calcium* 9.2 mg/dL (8.4-10.6); Carbon Dioxide* 26 mmol/L (20-32); Glucose* 84 mg/dL (60-115)
--- NOTE | 2024-09-18 07:19 | PC.NURSE ---
: T&R. Pills given with applesauce. Incont, perwick on, urine dark yellow, giving sips of water with repos. Delayed speech, difficult to understand at times, communicated well with yes/no questions. Heart murmur auscultated. At end of shift pt stated shes feeling stronger, she was able to prop herself up in bed and take a drink of water.
[2024-09-18 07:25] LABS: C Reactive Protein* 21.4 mg/dL (0.5-1.0)
[2024-09-18] MEDS: DULOXETINE 30 MG CAPSULE DR 60 MG PO (08:58)
[2024-09-18] MEDS: buPROPion HCL 100 MG TAB.SR.12H PO ×3 (08:59→20:34)
[2024-09-18] MEDS: APIXABAN 5 MG TABLET PO ×2 (08:59→20:34)
[2024-09-18] MEDS: GABAPENTIN 300 MG CAPSULE 600 MG PO ×2 (08:59→20:34)
[2024-09-18] MEDS: FAMOTIDINE 20 MG TABLET 40 MG PO ×2 (08:59→20:34)
[2024-09-18] MEDS: METOPROLOL SUCCINATE (XL) 25 MG TAB PO (09:00)
[2024-09-18] MEDS: SODIUM CHLORIDE 0.9 % (FLUSH) 10 ML SYRINGE 5 ML IVF ×3 (09:00→22:17)
[2024-09-18 11:00] VITALS: BP 103/72; PULSE 81; RESP 16; TEMP 36.7; O2SAT 93
[2024-09-18] MEDS: GABAPENTIN 300 MG CAPSULE PO (13:00)
[2024-09-18 15:00] VITALS: BP 100/67; PULSE 97; RESP 16; TEMP 36.8; O2SAT 92
--- NOTE | 2024-09-18 15:46 | PM.IMPN1 ---
Progress Note: A&P Assessment and plan (1) Metabolic encephalopathy: Problem details: Patient had severely impaired cognitive function on admission 09/16/2024 having been found at home unable to get out of bed, care for herself or call for help. Modestly improved with fluid hydration. Suspect multiple contributing causes. For now will reduce large doses of psychoactive medications such as gabapentin and continue to monitor and evaluate. Appears unable to care for herself at this time. Possibility of lymphoma and leptomeningeal disease present. Obtain MRI. Status: Acute (2) Acute kidney injury: Problem details: Creatinine 1.2 on 09/06/2024. Creatinine 2.6 on this admission. Creatinine 2.0 today. I suspect her KATIE is due to dehydration Status: Acute (3) Acute dehydration: Problem details: Likely unable to manage to obtain and eat food or drink fluid for the last few days. Status: Acute (4) Lymphadenopathy, generalized: Problem details: CT chest abdomen pelvis on 09/16/2024 shows:1. Demonstration of markedly pathologic lymph nodes seen throughout the chest, abdomen and pelvis most prominently within the right axilla and left lower quadrant mesentery with a conglomerate up to 14 centimeter lymph node mass in the left lower quadrant abdomen. There is moderate omental caking. Overall, findings are concerning for likely lymphoproliferative malignancy such as lymphoma. Correlate with history of malignancy and/or follow-up with percutaneous tissue sampling of easily accessible lymph node in the right axilla for improved characterization. Eventually will need biopsy to further evaluate. Depending on clinical course consider evaluation for leptomeningeal lymphoma to investigate altered mental status. Status: Acute (5) Hypercalcemia: Problem details: Calcium 11.9 on 09/06/2024. Calcium improved from 11.5 on admission to 9.5 today with hydration. Status: Acute (6) Fever of unknown origin: Problem details: Reported by her primary care doctor on 09/06/2024. Details are unclear. Continue to monitor Status: Acute (7) Weight loss, abnormal: Problem details: Reported by her primary care doctor on 09/06/2024. Details unclear. Continue to monitor Status: Acute (8) History of atrial flutter: Problem details: Noted in her chart. On Eliquis and metoprolol. Currently in sinus rhythm Status: Acute (9) Major depression: Problem details: Details unclear. Continue home medications. Status: Acute (10) UTI (urinary tract infection): Problem details: Not reporting symptoms but unreliable historian. Markedly abnormal urine. Treat pending culture and clinical course Status: Acute (11) Weakness generalized: Problem details: Relatively profound bilateral lower extremity weakness. Unable to lift either leg off the bed. 3/5 strength in hip flexion. 4/5 strength in knee flexion and extension. 5/5 strength in ankle dorsiflexion and plantar flexion. Status: Acute Plan Continue in hospital for evaluation treatment of profound weakness, investigation of lymphadenopathy and ongoing discussion about plan of care. Total time spent today is 60 minutes in coordination of care and discussing with patient, family and other providers ongoing evaluation management of current problems and plan for disposition. Subjective Date Seen: 09/18/24 Interval history: Emergency department history of present illness: Vic Major is a 74 year old female brought in by EMS from her independent apartment at [address] after welfare check was called. Patient is known to have had an apartment well for checked 2 weeks ago. People from the facility reportedly had not seen her. She states she talked to her son last night, [facility] has the same phone number is we do for her son, it has been disconnected. Patient thinks that maybe her son did not pay his phone bill. Her phone is not charged and thus we cannot access it to see when the last time she talked to her son was, we are working on getting her phone charged. Per EMS, she was in feces, feces were all over the apartment and she was sitting in feces/urine. She had juice spilled around her mouth and chest that was dried. Her speech is noted to be slurred, she states it is been that way for couple of days. On her last apartment checked 2 weeks ago, patient was standing when they came in and went to lie down. Her blood sugar was 175, she is denying any pain but states she has been sick. She is a difficult to understand and a poor historian at this point. She does not get any meals per report, states she has been making her own meals. She cannot tell me the last time she went to the grocery store. Additional information on admission: Patient is ability to communicate and level of consciousness has improved on arrival to the inpatient yanes. She is oriented to being in the hospital. She recalls getting a ride here by ambulance but cannot tell me who called the ambulance or why the ambulance was called. She thinks that she was just fine yesterday but cannot give me any details of what happened yesterday or today. She does acknowledge that she is unable to walk today. This is been out ongoing problem but clearly much worse today. She tells me that she has an electric scooter in her apartment and that she walks with a cane. Today she is unable to get out of bed on her own and tells me she cannot stand without someone holding onto her. Ongoing attempts to contact her son, Ron, who lives in [place] have been unsuccessful. I have records indicating his phone number is [phone] but he does not answer at that number. The patient is unable to call on her phone. Initially it appeared that her phone battery was . After charging her phone however she does not remember how to open her phone with the password. She is unable to tell me the name of her friend and/or sister who are perhaps neighbor's or helpers for her. She also has a daughter, Vandana lives in [place]. She does not know how to contact her daughter either. She does not know her past medical history. She was seen by her primary care provider, Dr. Renae Sheets in [place] on September 06. Notes from that visit indicate and evaluation was initiated for lymphadenopathy, fever of unknown origin, abnormal weight loss, sinusitis, hypertensive chronic kidney disease, thrombocytosis, B12 deficiency, history of atrial flutter, osteoporosis, mass of her chest wall, major depression, hypo magnesemia, hypercalcemia, hypervitaminosis D. patient does not remember any of the events or evaluation was done at that time or the results of that evaluation. Patient has remained relatively stable vitals but appears increasingly neurologically and functionally disabled. This morning she was unable to feed herself breakfast. She is basically unable to do any simple tasks. She is increasingly having difficulty communicating. Appears to lack insight into any of her current disabilities. Still unable to reach her family by phone. Patient is unable to get into her own phone. 09/18/2024: Yesterday afternoon we are able to get in contact with 2 sons and daughter. The 2 sons have come to the hospital this morning and the daughter is hoping to get here later today. Family meeting today with the 2 sons, [id number] and the patient to discuss her current health status and diagnosis. In summary it appears that she has had a acute on chronic decline presumably related to her severe generalized lymphadenopathy which likely represents cancer possibly lymphoma. This has led to the point now where she is severely disabled with some mental decline that the family notes today as well as profound physical decline with her inability to stand or transfer. She also has unable to feed herself. It appears that she will not ever be able to live independently. Alternative living arrangements will be required. At this point her health status is such that she is likely not a candidate for significant cancer treatment. We will do some ongoing investigation including a possible biopsy and MRI of the brain to better understand her presumed cancer diagnosis. Exam Narrative: Exam Narrative: She is alert and appears in no distress. She struggles a little bit with word finding and articulation but significantly improved from 2 days ago. Respirations are clear to auscultation. Cardiovascular: S1, S2, regular rate and rhythm. Abdomen is soft without tenderness or mass. Extremities with mild edema. She is barely able to lift arms up to horizontal and can only lift her heels off the bed if I support her knees. Finger extension is 4/5 bilaterally. Ankle in great toe dorsiflexion also 4/5 bilaterally. Proximal muscles are a bit weaker Const: Vital Signs, click to edit/add: Vital Signs - 24 hr 09/17/24 15:10 09/17/24 15:10 09/17/24 20:00 Temperature 98.3 F 97.7 F Pulse Rate [Pulse Oximeter] 96 96 91 Respiratory Rate 18 18 18 Blood Pressure [Le ft Arm] 98/72 111/67 Pulse Oximetry 94 92 Oxygen Delivery Ak thod Room Air Room Air 09/17/24 23:00 09/18/24 03:00 09/18/24 07:00 Temperature 98.1 F 98.2 F Pulse Rate [Pulse Oximeter] 91 90 92 Respiratory Rate 18 18 18 Blood Pressure [Le ft Arm] 103/66 110/60 Pulse Oximetry 93 95 Oxygen Delivery Ak thod Room Air Room Air 09/18/24 07:00 09/18/24 11:00 Temperature 98.2 F 98.0 F Pulse Rate [Pulse Oximeter] 88 81 Respiratory Rate 18 16 Blood Pressure [Le ft Arm] 118/87 103/72 Pulse Oximetry 92 93 Oxygen Delivery Me thod Room Air Room Air Documenting provider has reviewed patient's vital signs: yes Labs Labs: Laboratory Results - last 24 hr 09/18/24 05:40 WBC 13.59 H RBC 4.27 Hgb 13.0 Hct 37.9 MCV 89 MCH 30 MCHC 34 RDW Coeff of Mague 20.5 H Plt Count 375 Neut % (Auto) 58.1 Lymph % (Auto) 26.7 Rabun % (Auto) 13.2 H Eos % (Auto) 0.9 Baso % (Auto) 0.3 Neut # (Auto) 7.90 H Lymph # (Auto) 3.60 H Rabun # (Auto) 1.80 H Eos # (Auto) 0.10 Baso # (Auto) 0.00 Abs Immat Gran (auto) 0.10 Imm/Tot Granulo (auto) 0.8 Sodium 132 L Potassium 3.7 Chloride 98 Carbon Dioxide 26 Anion Gap 8 BUN 35 H Creatinine 1.7 H Estimated Creat Clear 30.18 Estimated GFR 32 Glucose 84 Calcium 9.2 C-Reactive Protein 21.4 H
[2024-09-18] MEDS: ONDANSETRON 2 MG/ML inj 4 MG IVP ×2 (15:52→22:15)
--- NOTE | 2024-09-18 18:40 | PC.NURSE ---
End of shift: patient much stronger today. VSS. on RA. Afebrile this shift. Patient able to feed herself breakfast and pivot to BSC this AM. As the day progressed, patient unable to perform tasks as in the AM, became increasingly weak again and needing assistance with food for lunch and dinner. Ceiling lift to chair or BSC. Patient was Nauseous and had 100cc emesis out. Zofran administered w/relief, Q-Z patch applied and marcell saranya offered. Family at bedside today and spoke to the doctor.
[2024-09-18 19:00] VITALS: BP 104/59; PULSE 90; RESP 16; TEMP 36.8; O2SAT 93
[2024-09-18] MEDS: DULOXETINE 30 MG CAPSULE DR PO (20:34)
[2024-09-18 22:49] VITALS: BP 98/54; PULSE 90; RESP 20; TEMP 36.8; O2SAT 92
[2024-09-19 03:00] VITALS: BP 103/76; PULSE 88; RESP 16; TEMP 36.5; O2SAT 95
--- NOTE | 2024-09-19 05:38 | PC.NURSE ---
[id number] Pt slept well during night, repo q3hrs, purewick in place. pt with occasional word finding difficulty as well as not making sense, then has moment of clarity where responses are appropriate and clear. weak x4 extremities, pt able to minimally assist with repositioning/moving for brief changes. incontinent of bladder this shift.
[2024-09-19] MEDS: OMEPRAZOLE 20 MG CAPSULE DR 40 MG PO ×2 (06:07→16:56)
[2024-09-19 06:29] LABS: Basophils Absolute Auto 0.03 K/uL (0.00-0.30); Basophils Percent Auto 0.3 % (0.0-3.0); Eosinophils Absolute Auto 0.12 K/uL (0.00-0.50); Eosinophils Percent Auto 1.1 % (0.0-7.0); Hematocrit 40.7 % (33.0-51.0); Hemoglobin* 13.6 gm/dL (12.0-16.0); Immature Granulocytes Abs Auto 0.14 K/uL (0.00-0.30); Immature Granulocytes Pct Auto 1.3 %; Lymphocytes Percent Auto 31.5 % (20-44); Mean Corpuscular HGB Conc 33 gm/dL (32-36); Mean Corpuscular Hemoglobin 30 pg (26-34); Mean Corpuscular Volume 90 fL (80-100); Monocytes Percent Auto 15.4 % (0.0-11.0); Neutrophils Absolute Auto 5.27 K/uL (1.7-7.0); Neutrophils Percent Auto 50.4 % (42.0-72.0); Platelet Count* 401 K/uL (140-440); RDW Coefficient of Variation % 20.9 % (11.5-15.5); Red Blood Count 4.55 m/uL (4.00-5.20); White Blood Count* 10.47 K/uL (4.50-11.00)
[2024-09-19 06:39] LABS: Chloride* 96 mmol/L (96-114); Potassium* 3.8 mmol/L (3.6-5.1); Sodium* 131 mmol/L (135-149)
[2024-09-19 06:42] LABS: Blood Urea Nitrogen* 33 mg/dL (7-30); Creatinine* 1.6 mg/dL (0.5-1.5); Est. Creatinine Clearance* 32.06; Estimated Glomerular Filt Rate 34 ml/min
[2024-09-19 06:43] LABS: Anion Gap 7 mEq/L (7-15); Calcium* 8.9 mg/dL (8.4-10.6); Carbon Dioxide* 28 mmol/L (20-32); Glucose* 80 mg/dL (60-115)
[2024-09-19 06:58] LABS: C Reactive Protein* 25.4 mg/dL (0.5-1.0)
[2024-09-19 07:00] VITALS: BP 122/82; PULSE 82; RESP 18; TEMP 36.4; O2SAT 95
[2024-09-19 07:04] LABS: Slide Review Reflex Yes
[2024-09-19 07:12] LABS: Slide Review Acceptable Review (Acceptable)
[2024-09-19] MEDS: LORazepam 2 MG/ML inj IVP (07:57)
[2024-09-19 09:49] VITALS: BP 101/70; PULSE 90; RESP 16; TEMP 36.3; O2SAT 98
[2024-09-19] MEDS: GABAPENTIN 300 MG CAPSULE 600 MG PO ×2 (09:49→20:35)
[2024-09-19] MEDS: FAMOTIDINE 20 MG TABLET 40 MG PO ×2 (09:49→20:36)
[2024-09-19] MEDS: DULOXETINE 30 MG CAPSULE DR 60 MG PO (09:50)
[2024-09-19] MEDS: APIXABAN 5 MG TABLET PO ×2 (09:50→20:36)
[2024-09-19] MEDS: buPROPion HCL 100 MG TAB.SR.12H PO ×3 (09:52→20:36)
[2024-09-19] MEDS: SODIUM CHLORIDE 0.9 % (FLUSH) 10 ML SYRINGE 5 ML IVF ×2 (09:58→20:36)
[2024-09-19] MEDS: METOPROLOL SUCCINATE (XL) 25 MG TAB PO (10:00)
--- NOTE | 2024-09-19 10:26 | NUTR.NU ---
RDN with nutrition screen related to positive skin risk. Patient admitted with recent functional and cognitive decline, represents cancer possibly lymphoma. Patient currently resides in independent apartments and will be requiring placement at discharge. Current weight 194lb 12.807oz; height 5ft 8in; BMI 29.6 kg/m2. No weight history, MST score was 0. Current diet is regular. Meal intakes minimal, however patient is having difficulty feeding self and is requiring assistance. Unsure of goals of care at this time. No nutrition interventions at this time with stable weight. RDN will continue to monitor and follow-up as appropriate.
[2024-09-19] MEDS: GABAPENTIN 300 MG CAPSULE PO (12:30)
[2024-09-19 15:00] VITALS: BP 103/63; PULSE 94; RESP 18; TEMP 36.8; O2SAT 93
--- NOTE | 2024-09-19 16:51 | PC.SOCIAL ---
Discharge planning: The pt and her daughter had a long conversation with the provider on duty this morning about goals of care. The pt decided that she wants to go on hospice and does not want to pursue extensive medical treatments. Pt would like to go on hospice in a [facility] facility. roundhouse worker met with the pt and her daughter and explained that the pt would have to fill out a Medical Assistance application for long-term care SNF coverage before we could start looking for a facility. roundhouse worker provided the pt and her daughter, Vandana, with the MA application. Vandana will work on getting proofs/statements to this worker from pt's bank account, her car title, social security income, etc. roundhouse worker also provided the pt/family with a blank copy of the [place] health care directive. Pt and her family will work on that form, as well. roundhouse worker did let the pt and family know that there is typically a notary on staff in the hospital( center) that would be able to notarize and sign the document. roundhouse worker will follow-up on the MA application tomorrow with the pt and her family. roundhouse worker provided Lamar Saeed with [facility] #[phone] and Manda(pt's employment evaluator/case manager) with [facility] #[phone] an update on the discharge plan for the pt. Social work to follow-up as needed.
--- NOTE | 2024-09-19 16:58 | PM.IMPN1 ---
Progress Note: A&P Assessment and plan (1) Metabolic encephalopathy: Problem details: Patient had severely impaired cognitive function on admission 09/16/2024 having been found at home unable to get out of bed, care for herself or call for help. Modestly improved with fluid hydration. Suspect multiple contributing causes. For now will reduce large doses of psychoactive medications such as gabapentin and continue to monitor and evaluate. Appears unable to care for herself at this time. Possibility of lymphoma and leptomeningeal disease present. Status: Acute (2) Acute kidney injury: Problem details: Creatinine 1.2 on 09/06/2024. Creatinine 2.6 on this admission. Creatinine 1.6 today. I suspect her KATIE is due to dehydration. Status: Acute (3) Acute dehydration: Problem details: Likely unable to manage to obtain and eat food or drink fluid for the last few days. Here she is able to feed herself somewhat today and somewhat needs assistance Status: Acute (4) Lymphadenopathy, generalized: Problem details: CT chest abdomen pelvis on 09/16/2024 shows:1. Demonstration of markedly pathologic lymph nodes seen throughout the chest, abdomen and pelvis most prominently within the right axilla and left lower quadrant mesentery with a conglomerate up to 14 centimeter lymph node mass in the left lower quadrant abdomen. There is moderate omental caking. Overall, findings are concerning for likely lymphoproliferative malignancy such as lymphoma. Correlate with history of malignancy and/or follow-up with percutaneous tissue sampling of easily accessible lymph node in the right axilla for improved characterization. Eventually will need biopsy to further evaluate. Depending on clinical course consider evaluation for leptomeningeal lymphoma to investigate altered mental status. Status: Acute (5) Hypercalcemia: Problem details: Calcium 11.9 on 09/06/2024. Calcium improved from 11.5 on admission to 9.5 today with hydration. Status: Acute (6) Fever of unknown origin: Problem details: Reported by her primary care doctor on 09/06/2024. Details are unclear. Continue to monitor Status: Acute (7) Weight loss, abnormal: Problem details: Reported by her primary care doctor on 09/06/2024. Details unclear. Continue to monitor Status: Acute (8) History of atrial flutter: Problem details: Noted in her chart. On Eliquis and metoprolol. Currently in sinus rhythm Status: Acute (9) Major depression: Problem details: Details unclear. Continue home medications. Status: Acute (10) UTI (urinary tract infection): Problem details: Not reporting symptoms but unreliable historian. Markedly abnormal urine. Treat pending culture and clinical course Status: Acute (11) Weakness generalized: Problem details: Relatively profound bilateral lower extremity weakness. Unable to lift either leg off the bed. 3/5 strength in hip flexion. 4/5 strength in knee flexion and extension. 5/5 strength in ankle dorsiflexion and plantar flexion. Status: Acute (12) Palliative care encounter: Problem details: Conversation on 09/19/2024 with patient and her daughter and by phone her 2 sons to discuss her poor prognosis with unknown cancer diagnosis and severely failing health. She seems to understand her serious illness and was quite ready to accept this terminal diagnosis and a transition to hospice care. Prognosis is a few weeks. Status: Acute Plan Transition to palliative care/hospice care. Time Spent With Patient Total time spent: Total time spent today is 60 minutes in coordination of care and discussion with patient, family and other providers a transition to hospice Subjective Date Seen: 09/19/24 Interval history: Emergency department history of present illness: Vic Major is a 74 year old female brought in by EMS from her independent apartment at [address] after welfare check was called. Patient is known to have had an apartment well for checked 2 weeks ago. People from the facility reportedly had not seen her. She states she talked to her son last night, [facility] has the same phone number is we do for her son, it has been disconnected. Patient thinks that maybe her son did not pay his phone bill. Her phone is not charged and thus we cannot access it to see when the last time she talked to her son was, we are working on getting her phone charged. Per EMS, she was in feces, feces were all over the apartment and she was sitting in feces/urine. She had juice spilled around her mouth and chest that was dried. Her speech is noted to be slurred, she states it is been that way for couple of days. On her last apartment checked 2 weeks ago, patient was standing when they came in and went to lie down. Her blood sugar was 175, she is denying any pain but states she has been sick. She is a difficult to understand and a poor historian at this point. She does not get any meals per report, states she has been making her own meals. She cannot tell me the last time she went to the grocery store. Additional information on admission: Patient is ability to communicate and level of consciousness has improved on arrival to the inpatient yanes. She is oriented to being in the hospital. She recalls getting a ride here by ambulance but cannot tell me who called the ambulance or why the ambulance was called. She thinks that she was just fine yesterday but cannot give me any details of what happened yesterday or today. She does acknowledge that she is unable to walk today. This is been out ongoing problem but clearly much worse today. She tells me that she has an electric scooter in her apartment and that she walks with a cane. Today she is unable to get out of bed on her own and tells me she cannot stand without someone holding onto her. Ongoing attempts to contact her son, Ron, who lives in [place] have been unsuccessful. I have records indicating his phone number is [phone] but he does not answer at that number. The patient is unable to call on her phone. Initially it appeared that her phone battery was . After charging her phone however she does not remember how to open her phone with the password. She is unable to tell me the name of her friend and/or sister who are perhaps neighbor's or helpers for her. She also has a daughter, Vandana lives in [place]. She does not know how to contact her daughter either. She does not know her past medical history. She was seen by her primary care provider, Dr. Renae Sheets in [place] on September 06. Notes from that visit indicate and evaluation was initiated for lymphadenopathy, fever of unknown origin, abnormal weight loss, sinusitis, hypertensive chronic kidney disease, thrombocytosis, B12 deficiency, history of atrial flutter, osteoporosis, mass of her chest wall, major depression, hypo magnesemia, hypercalcemia, hypervitaminosis D. patient does not remember any of the events or evaluation was done at that time or the results of that evaluation. Patient has remained relatively stable vitals but appears increasingly neurologically and functionally disabled. This morning she was unable to feed herself breakfast. She is basically unable to do any simple tasks. She is increasingly having difficulty communicating. Appears to lack insight into any of her current disabilities. Still unable to reach her family by phone. Patient is unable to get into her own phone. 09/18/2024: Yesterday afternoon we are able to get in contact with 2 sons and daughter. The 2 sons have come to the hospital this morning and the daughter is hoping to get here later today. Family meeting today with the 2 sons, [id number] and the patient to discuss her current health status and diagnosis. In summary it appears that she has had a acute on chronic decline presumably related to her severe generalized lymphadenopathy which likely represents cancer possibly lymphoma. This has led to the point now where she is severely disabled with some mental decline that the family notes today as well as profound physical decline with her inability to stand or transfer. She also has unable to feed herself. It appears that she will not ever be able to live independently. Alternative living arrangements will be required. At this point her health status is such that she is likely not a candidate for significant cancer treatment. We will do some ongoing investigation including a possible biopsy and MRI of the brain to better understand her presumed cancer diagnosis. 09/19/2024: Today patient was seen with her daughter. Patient still able to carry on a communication about her current health status and her goals of care. She also discusses with her daughter conversations that have occurred over the last few months where she has indicated that her quality of life has been poor. I reviewed with patient and daughter again the course of her recent illness to the extent that we know what has happened and now the diagnosis of new widely metastatic cancer. Patient and daughter both agreed that they would not like to proceed with further evaluation and treatment for her cancer. I noted that it is unlikely that she would be strong enough to tolerate significant cancer therapy anyway. She declined getting a needle biopsy of the lesion in her right axilla as she has decided she does not want to pursue any treatment. We discussed hospice and she was from air with this and open to this. Her daughter was also in agreement. I spoke on the phone with her sons Chandler and Arcadio who are also in agreement. Exam Narrative: Exam Narrative: She is alert and oriented to her circumstances. She is having some difficulty with word finding. She is otherwise able to express herself quite clearly but slowly. She is able to tell me about her diagnosis and condition. She recalls what we have reviewed in the last couple days including telling me that she has a terminal cancer. She tells me today that she does not want further testing or treatment and is accepting that she is going to from this. She seems relatively at peace with that decision. She otherwise appears comfortable in no distress. Const: Vital Signs, click to edit/add: Vital Signs - 24 hr 09/18/24 19:00 09/18/24 22:49 09/18/24 22:49 Temperature 98.2 F 98.2 F Pulse Rate [Pulse Oximeter] 90 90 90 Respiratory Rate 16 20 Blood Pressure [Le ft Arm] 104/59 L 98/54 L Pulse Oximetry 93 92 Oxygen Delivery Me thod Room Air Room Air 09/19/24 03:00 09/19/24 07:00 09/19/24 09:49 Temperature 97.7 F 97.5 F L 97.4 F L Pulse Rate [Pulse Oximeter] 88 82 90 Respiratory Rate 16 18 16 Blood Pressure [Le ft Arm] 103/76 122/82 101/70 Pulse Oximetry 95 95 98 Oxygen Delivery Me thod Room Air Room Air Room Air Documenting provider has reviewed patient's vital signs: yes Labs Labs: Laboratory Results - last 24 hr 09/19/24 05:48 WBC 10.47 RBC 4.55 Hgb 13.6 Hct 40.7 MCV 90 MCH 30 MCHC 33 RDW Coeff of Mague 20.9 H Plt Count 401 Neut % (Auto) 50.4 Lymph % (Auto) 31.5 Churchill % (Auto) 15.4 H Eos % (Auto) 1.1 Baso % (Auto) 0.3 Neut # (Auto) 5.27 Lymph # (Auto) 3.30 H Churchill # (Auto) 1.60 H Eos # (Auto) 0.12 Baso # (Auto) 0.03 Abs Immat Gran (auto) 0.14 Imm/Tot Granulo (auto) 1.3 Diff Slide Review Acceptable Review Sodium 131 L Potassium 3.8 Chloride 96 Carbon Dioxide 28 Anion Gap 7 BUN 33 H Creatinine 1.6 H Estimated Creat Clear 32.06 Estimated GFR 34 Glucose 80 Calcium 8.9 C-Reactive Protein 25.4 H
--- NOTE | 2024-09-19 18:46 | PC.NURSE ---
End of shift [id number]: Pt AxO to self, situation, and place. Pleasant and cooperative with cares. Increased confusion began during the evening, followed with increased help needed with ADLs. MRI done this AM. VSS on RA. Speech saw Pt post MRI, minced and moist - mildly thickened liquids. Soft foods okay with dentures. Pt tolerating diet/fluids okay. Pt reports little appetite. Pt requiring a feeder. Ceiling lift to chair. Incontinent of the bladder, purewick in place. Repo q2h and per request. Family at bedside for majority of the day discussing POC with MD. Pt denies pain and nausea. Pt up in chair watching television with call light in reach.
[2024-09-19] MEDS: DULOXETINE 30 MG CAPSULE DR PO (20:35)
[2024-09-19 21:00] VITALS: BP 95/60; PULSE 90; RESP 16; TEMP 36.3; O2SAT 94
[2024-09-20] MEDS: fentaNYL 25 MCG/HR PATCH 1 PATCH TRANSDERMA (00:36)
--- NOTE | 2024-09-20 06:11 | PC.NURSE ---
Pt is alert and oriented to self and place, with some forgetfulness of time. Pt denies pain, chest pain, SOB, and N/V. Pt?s external catheter is patent and draining. Pt was turned and repositioned throughout night. Mepilex was placed on bottom to protect coccyx from shearing from turning and repositioning.
[2024-09-20] MEDS: OMEPRAZOLE 20 MG CAPSULE DR 40 MG PO ×2 (06:53→18:53)
[2024-09-20] MEDS: FAMOTIDINE 20 MG TABLET 40 MG PO ×2 (09:24→21:07)
[2024-09-20] MEDS: GABAPENTIN 300 MG CAPSULE 600 MG PO ×2 (09:24→21:06)
[2024-09-20] MEDS: SODIUM CHLORIDE 0.9 % (FLUSH) 10 ML SYRINGE 5 ML IVF (09:24)
[2024-09-20] MEDS: DULOXETINE 30 MG CAPSULE DR 60 MG PO (09:24)
[2024-09-20] MEDS: buPROPion HCL 100 MG TAB.SR.12H PO ×3 (09:24→21:06)
[2024-09-20] MEDS: GABAPENTIN 300 MG CAPSULE PO (12:55)
--- NOTE | 2024-09-20 16:04 | PM.IMPN1 ---
Progress Note: A&P Assessment and plan (1) Disseminated malignancy of unknown primary: Problem details: Patient has diffuse lymphadenopathy. This represents an unknown malignancy and she has declined further investigation. Quality of life and her very poor health status preclude significant further evaluation or treatment Status: Acute (2) Metabolic encephalopathy: Problem details: Patient had severely impaired cognitive function on admission 09/16/2024 having been found at home unable to get out of bed, care for herself or call for help. Modestly improved with fluid hydration. Suspect multiple contributing causes. For now will reduce large doses of psychoactive medications such as gabapentin and continue to monitor and evaluate. Appears unable to care for herself at this time. Possibility of lymphoma and leptomeningeal disease present. Status: Acute (3) Acute kidney injury: Problem details: Creatinine 1.2 on 09/06/2024. Creatinine 2.6 on this admission. Creatinine 1.6 today. I suspect her KATIE is due to dehydration. Status: Acute (4) Acute dehydration: Problem details: Likely unable to manage to obtain and eat food or drink fluid for the last few days. Here she is able to feed herself somewhat today and somewhat needs assistance Status: Acute (5) Lymphadenopathy, generalized: Problem details: CT chest abdomen pelvis on 09/16/2024 shows:1. Demonstration of markedly pathologic lymph nodes seen throughout the chest, abdomen and pelvis most prominently within the right axilla and left lower quadrant mesentery with a conglomerate up to 14 centimeter lymph node mass in the left lower quadrant abdomen. There is moderate omental caking. Overall, findings are concerning for likely lymphoproliferative malignancy such as lymphoma. Correlate with history of malignancy and/or follow-up with percutaneous tissue sampling of easily accessible lymph node in the right axilla for improved characterization. Eventually will need biopsy to further evaluate. Depending on clinical course consider evaluation for leptomeningeal lymphoma to investigate altered mental status. Status: Acute (6) Hypercalcemia: Problem details: Calcium 11.9 on 09/06/2024. Calcium improved from 11.5 on admission to 9.5 today with hydration. Status: Acute (7) Fever of unknown origin: Problem details: Reported by her primary care doctor on 09/06/2024. Details are unclear. Continue to monitor Status: Acute (8) Weight loss, abnormal: Problem details: Reported by her primary care doctor on 09/06/2024. Details unclear. Continue to monitor Status: Acute (9) History of atrial flutter: Problem details: Noted in her chart. On Eliquis and metoprolol. Currently in sinus rhythm Status: Acute (10) Major depression: Problem details: Details unclear. Continue home medications. Status: Acute (11) UTI (urinary tract infection): Problem details: Not reporting symptoms but unreliable historian. Markedly abnormal urine. Treat pending culture and clinical course Status: Acute (12) Weakness generalized: Problem details: Relatively profound bilateral lower extremity weakness. Unable to lift either leg off the bed. 3/5 strength in hip flexion. 4/5 strength in knee flexion and extension. 5/5 strength in ankle dorsiflexion and plantar flexion. Status: Acute (13) Palliative care encounter: Problem details: Conversation on 09/19/2024 with patient and her daughter and by phone her 2 sons to discuss her poor prognosis with unknown cancer diagnosis and severely failing health. She seems to understand her serious illness and was quite ready to accept this terminal diagnosis and a transition to hospice care. Prognosis is a few weeks. Status: Acute Plan Continue in hospital for comfort cares pending appropriate discharge plan. Time Spent With Patient Total time spent: Total time spent today is 35 minutes in evaluation and management and discussing plan of care and disposition with patient and other providers Subjective Date Seen: 09/20/24 Interval history: Emergency department history of present illness: Vic Major is a 74 year old female brought in by EMS from her independent apartment at [address] after welfare check was called. Patient is known to have had an apartment well for checked 2 weeks ago. People from the facility reportedly had not seen her. She states she talked to her son last night, [address] has the same phone number is we do for her son, it has been disconnected. Patient thinks that maybe her son did not pay his phone bill. Her phone is not charged and thus we cannot access it to see when the last time she talked to her son was, we are working on getting her phone charged. Per EMS, she was in feces, feces were all over the apartment and she was sitting in feces/urine. She had juice spilled around her mouth and chest that was dried. Her speech is noted to be slurred, she states it is been that way for couple of days. On her last apartment checked 2 weeks ago, patient was standing when they came in and went to lie down. Her blood sugar was 175, she is denying any pain but states she has been sick. She is a difficult to understand and a poor historian at this point. She does not get any meals per report, states she has been making her own meals. She cannot tell me the last time she went to the grocery store. Additional information on admission: Patient is ability to communicate and level of consciousness has improved on arrival to the inpatient yanes. She is oriented to being in the hospital. She recalls getting a ride here by ambulance but cannot tell me who called the ambulance or why the ambulance was called. She thinks that she was just fine yesterday but cannot give me any details of what happened yesterday or today. She does acknowledge that she is unable to walk today. This is been out ongoing problem but clearly much worse today. She tells me that she has an electric scooter in her apartment and that she walks with a cane. Today she is unable to get out of bed on her own and tells me she cannot stand without someone holding onto her. Ongoing attempts to contact her son, Ron, who lives in [place] have been unsuccessful. I have records indicating his phone number is [phone] but he does not answer at that number. The patient is unable to call on her phone. Initially it appeared that her phone battery was . After charging her phone however she does not remember how to open her phone with the password. She is unable to tell me the name of her friend and/or sister who are perhaps neighbor's or helpers for her. She also has a daughter, Vandana lives in [place]. She does not know how to contact her daughter either. She does not know her past medical history. She was seen by her primary care provider, Dr. Renae Sheets in [place] on September 06. Notes from that visit indicate and evaluation was initiated for lymphadenopathy, fever of unknown origin, abnormal weight loss, sinusitis, hypertensive chronic kidney disease, thrombocytosis, B12 deficiency, history of atrial flutter, osteoporosis, mass of her chest wall, major depression, hypo magnesemia, hypercalcemia, hypervitaminosis D. patient does not remember any of the events or evaluation was done at that time or the results of that evaluation. Patient has remained relatively stable vitals but appears increasingly neurologically and functionally disabled. This morning she was unable to feed herself breakfast. She is basically unable to do any simple tasks. She is increasingly having difficulty communicating. Appears to lack insight into any of her current disabilities. Still unable to reach her family by phone. Patient is unable to get into her own phone. 09/18/2024: Yesterday afternoon we are able to get in contact with 2 sons and daughter. The 2 sons have come to the hospital this morning and the daughter is hoping to get here later today. Family meeting today with the 2 sons, [id number] and the patient to discuss her current health status and diagnosis. In summary it appears that she has had a acute on chronic decline presumably related to her severe generalized lymphadenopathy which likely represents cancer possibly lymphoma. This has led to the point now where she is severely disabled with some mental decline that the family notes today as well as profound physical decline with her inability to stand or transfer. She also has unable to feed herself. It appears that she will not ever be able to live independently. Alternative living arrangements will be required. At this point her health status is such that she is likely not a candidate for significant cancer treatment. We will do some ongoing investigation including a possible biopsy and MRI of the brain to better understand her presumed cancer diagnosis. 09/19/2024: Today patient was seen with her daughter. Patient still able to carry on a communication about her current health status and her goals of care. She also discusses with her daughter conversations that have occurred over the last few months where she has indicated that her quality of life has been poor. I reviewed with patient and daughter again the course of her recent illness to the extent that we know what has happened and now the diagnosis of new widely metastatic cancer. Patient and daughter both agreed that they would not like to proceed with further evaluation and treatment for her cancer. I noted that it is unlikely that she would be strong enough to tolerate significant cancer therapy anyway. She declined getting a needle biopsy of the lesion in her right axilla as she has decided she does not want to pursue any treatment. We discussed hospice and she was from air with this and open to this. Her daughter was also in agreement. I spoke on the phone with her sons Chandler and Arcadio who are also in agreement. 09/20/2024: Patient reports doing well at this time. Her main concern today is that she would like to be with her dog, abhinav. She reports no pain. No breathing problems. She was able to feed herself fairly well today. Still profoundly weak. Exam Narrative: Exam Narrative: She is alert, pleasant in no distress. Speech is relatively fluent today. She remains oriented to her circumstances and able to carry on appropriate conversation. Const: Vital Signs, click to edit/add: Vital Signs - 24 hr 09/19/24 21:00 Temperature 97.4 F L Pulse Rate [Pulse Oximeter] 90 Respiratory Rate 16 Blood Pressure [Le ft Arm] 95/60 Pulse Oximetry 94 Oxygen Delivery Me thod Room Air Documenting provider has reviewed patient's vital signs: yes
--- NOTE | 2024-09-20 17:07 | PC.SOCIAL ---
Discharge planning: instrument worker completed the MA-LTC application with the pt today. Pt's daughter Vandana also sent this worker pt's bank statements via email for the application. instrument worker still needs a copy of pt's pension, social security award letter and car title. Pt's son Chandler from [employer] will work on getting those documents. Chandler and his plan on coming to the hospital on of this week to visit and will hopefully have the needed documents by then. instrument worker also plans to talk to Chandler and the pt about a HCD again on . instrument worker updated Lamar Saeed with [facility] APS #[phone] with the progress of the MA-LTC application. Lamar requested copies of the pt's bank statements for her APS investigation. instrument worker sent those to Lamar via secure email at [email or web address]. instrument worker also updated Manda(pt's case making machine operator with [facility]) #[phone] on pt's decision to pursue hospice at a senior care facility. Social work to follow-up as needed.
--- NOTE | 2024-09-20 19:39 | PC.NURSE ---
Nursing Care Hours: 0621-6035 Pt this shift calm and cooperative, alert and oriented with forgetfulness. O2 stable this morning on RA. No c/o pain. Fentanyl patch still in place. [employer] patent. Gown change x2. Repo Q2H. Pt frequently asking about her dog but per pt daughter request, staff are to redirect the question. What happened with dog is unknown.
[2024-09-20] MEDS: DULOXETINE 30 MG CAPSULE DR PO (21:07)
--- NOTE | 2024-09-21 05:30 | PC.NURSE ---
Pt is alert and oriented to self and place. Pt denies pain, chest pain, SOB, and N/V. Pt was turned and repositioned throughout night. Pt?s external catheter is patent and draining.
[2024-09-21] MEDS: OMEPRAZOLE 20 MG CAPSULE DR 40 MG PO ×2 (06:05→16:48)
[2024-09-21 09:25] VITALS: BP 118/84; PULSE 107; RESP 20; TEMP 36.4; O2SAT 97
[2024-09-21] MEDS: buPROPion HCL 100 MG TAB.SR.12H PO ×3 (09:27→20:12)
[2024-09-21] MEDS: FAMOTIDINE 20 MG TABLET 40 MG PO ×2 (09:27→20:12)
[2024-09-21] MEDS: GABAPENTIN 300 MG CAPSULE 600 MG PO ×2 (09:27→20:12)
[2024-09-21] MEDS: DULOXETINE 30 MG CAPSULE DR 60 MG PO (09:27)
[2024-09-21] MEDS: SODIUM CHLORIDE 0.9 % (FLUSH) 10 ML SYRINGE 5 ML IVF ×2 (09:28→20:12)
--- NOTE | 2024-09-21 10:55 | P.IMPN_ITS ---
Progress Note: A&P Assessment and plan (1) Disseminated malignancy of unknown primary: Problem details: Patient has diffuse lymphadenopathy. This represents an unknown malignancy and she has declined further investigation. Quality of life and her very poor health status preclude significant further evaluation or treatment Status: Acute (2) Metabolic encephalopathy: Problem details: Patient had severely impaired cognitive function on admission 09/16/2024 having been found at home unable to get out of bed, care for herself or call for help. Modestly improved with fluid hydration. Suspect multiple contributing causes. For now will reduce large doses of psychoactive medications such as gabapentin and continue to monitor and evaluate. Appears unable to care for herself at this time. Possibility of lymphoma and leptomeningeal disease present. Status: Acute (3) Acute kidney injury: Problem details: Creatinine 1.2 on 09/06/2024. Creatinine 2.6 on this admission. Creatinine improved to 1.6. I suspect her KATIE is due to dehydration. Status: Acute (4) Acute dehydration: Problem details: Likely unable to manage to obtain and eat food or drink fluid for the last few days. Now better able to feed herself. Status: Acute (5) Lymphadenopathy, generalized: Problem details: CT chest abdomen pelvis on 09/16/2024 shows:1. Demonstration of markedly pathologic lymph nodes seen throughout the chest, abdomen and pelvis most prominently within the right axilla and left lower quadrant mesentery with a conglomerate up to 14 centimeter lymph node mass in the left lower quadrant abdomen. There is moderate omental caking. Overall, findings are concerning for likely lymphoproliferative malignancy such as lymphoma. Correlate with history of malignancy and/or follow-up with percutaneous tissue sampling of easily accessible lymph node in the right axilla for improved characterization. Declined biopsy of her right axillary lymphadenopathy to get a pathologic diagnosis. Status: Acute (6) Hypercalcemia: Problem details: Calcium 11.9 on 09/06/2024. Calcium improved from 11.5 on admission to 9.5 with hydration. Status: Acute (7) Fever of unknown origin: Problem details: Reported by her primary care doctor on 09/06/2024. Details are unclear. No significant fever in the hospital Status: Acute (8) Weight loss, abnormal: Problem details: Reported by her primary care doctor on 09/06/2024. Details unclear. Likely related to malignancy Status: Acute (9) History of atrial flutter: Problem details: Noted in her chart. On Eliquis and metoprolol. Currently in sinus rhythm Status: Acute (10) Major depression: Problem details: Details unclear. Continue home medications. Status: Acute (11) UTI (urinary tract infection): Problem details: Not reporting symptoms but unreliable historian. Markedly abnormal urine. Treat pending culture and clinical course Status: Acute (12) Weakness generalized: Problem details: Relatively profound bilateral lower extremity weakness. Unable to lift either leg off the bed. 3/5 strength in hip flexion. 4/5 strength in knee flexion and extension. 5/5 strength in ankle dorsiflexion and plantar flexion. As recently as 2 weeks prior to admission was able to get into her son's truck on her own power. Uncertain when she was last able to walk independently but her son visited her and said she was ambulatory 4 days prior to admission. Status: Acute (13) Palliative care encounter: Problem details: Conversation on 09/19/2024 with patient and her daughter and by phone her 2 sons to discuss her poor prognosis with unknown cancer diagnosis and severely failing health. She seems to understand her serious illness and was quite ready to accept this terminal diagnosis and a transition to hospice care. Prognosis is a few weeks. Status: Acute Plan Continue in hospital for palliative care pending safe discharge plan to hospice Time Spent With Patient Total time spent: Total time spent today is 35 minutes in coordination of care discussing with patient other providers ongoing plan of care for comfort cares Subjective Date Seen: 09/21/24 Interval history: Emergency department HPI: Vic Major is a 74 year old female brought in by EMS from her independent apartment [address] after welfare check was called. Patient is known to have had an apartment well for checked 2 weeks ago. People from the facility reportedly had not seen her. She states she talked to her son last night, [address] has the same phone number is we do for her son, it has been disconnected. Patient thinks that maybe her son did not pay his phone bill. Her phone is not charged and thus we cannot access it to see when the last time she talked to her son was, we are working on getting her phone charged. Per EMS, she was in feces, feces were all over the apartment and she was sitting in feces/urine. She had juice spilled around her mouth and chest that was dried. Her speech is noted to be slurred, she states it is been that way for couple of days. On her last apartment checked 2 weeks ago, patient was standing when they came in and went to lie down. Her blood sugar was 175, she is denying any pain but states she has been sick. She is a difficult to understand and a poor historian at this point. She does not get any meals per report, states she has been making her own meals. She cannot tell me the last time she went to the grocery store. Additional information on admission: Patient is ability to communicate and level of consciousness has improved on arrival to the inpatient yanes. She is oriented to being in the hospital. She recalls getting a ride here by ambulance but cannot tell me who called the ambulance or why the ambulance was called. She thinks that she was just fine yesterday but cannot give me any details of what happened yesterday or today. She does acknowledge that she is unable to walk today. This is been out ongoing problem but clearly much worse today. She tells me that she has an electric scooter in her apartment and that she walks with a cane. Today she is unable to get out of bed on her own and tells me she cannot stand without someone holding onto her. Ongoing attempts to contact her son, Ron, who lives in [place] have been unsuccessful. I have records indicating his phone number is [phone] but he does not answer at that number. The patient is unable to call on her phone. Initially it appeared that her phone battery was . After charging her phone however she does not remember how to open her phone with the password. She is unable to tell me the name of her friend and/or sister who are perhaps neighbor's or helpers for her. She also has a daughter, Vandana lives in [place]. She does not know how to contact her daughter either. She cannot get into her own phone. She does not know her past medical history. She was seen by her primary care provider, Dr. Renae Sheets in [place] on September 06. Notes from that visit indicate and evaluation was initiated for lymphadenopathy, fever of unknown origin, abnormal weight loss, sinusitis, hypertensive chronic kidney disease, thrombocytosis, B12 deficiency, history of atrial flutter, osteoporosis, mass of her chest wall, major depression, hypo magnesemia, hypercalcemia, hypervitaminosis D. patient does not remember any of the events or evaluation was done at that time or the results of that evaluation. Patient has remained relatively stable vitals but appears increasingly neurologically and functionally disabled. This morning she was unable to feed herself breakfast. She is basically unable to do any simple tasks. She is increasingly having difficulty communicating. Appears to lack insight into any of her current disabilities. 09/18/2024: Yesterday afternoon we are able to get in contact with 2 sons and daughter. The 2 sons have come to the hospital this morning and the daughter is hoping to get here later today. Family meeting today with the 2 sons, [id number] and the patient to discuss her current health status and diagnosis. In summary it appears that she has had a acute on chronic decline presumably related to her severe generalized lymphadenopathy which likely represents cancer possibly lymphoma. This has led to the point now where she is severely disabled with some mental decline that the family notes today as well as profound physical decline with her inability to stand or transfer. She also has unable to feed herself. It appears that she will not ever be able to live independently. Alternative living arrangements will be required. At this point her health status is such that she is likely not a candidate for significant cancer treatment. We will do some ongoing investigation including a possible biopsy and MRI of the brain to better understand her presumed cancer diagnosis. 09/19/2024: Today patient was seen with her daughter. Patient still able to carry on a communication about her current health status and her goals of care. She also discusses with her daughter conversations that have occurred over the last few months where she has indicated that her quality of life has been poor. I reviewed with patient and daughter again the course of her recent illness to the extent that we know what has happened and now the diagnosis of new widely metastatic cancer. Patient and daughter both agreed that they would not like to proceed with further evaluation and treatment for her cancer. I noted that it is unlikely that she would be strong enough to tolerate significant cancer therapy anyway. She declined getting a needle biopsy of the lesion in her right axilla as she has decided she does not want to pursue any treatment. We discussed hospice and she was from air with this and open to this. Her daughter was also in agreement. I spoke on the phone with her sons Chandler and Arcadio who are also in agreement. 09/20/2024: Patient reports doing well at this time. Her main concern today is that she would like to be with her dog, abhinav. She reports no pain. No breathing problems. She was able to feed herself fairly well today. Still profoundly weak. Fentanyl patch started yesterday 09/21/2024: Continues to receive comfort cares. She has no concerns today. She is alert and able to carry on a conversation about her circumstances. Still would like to see heard dog visit. Denies dyspnea, chest pain, abdominal pain, nausea, vomiting. Remains profoundly weak and bedridden Exam Narrative: Exam Narrative: She is sleeping and arouses to voice. Oriented to her circumstances. Able to carry a conversation about her current health status and plan of care going forward. Speech is relatively clear and appropriate. Breathing is unlabored. Const: Vital Signs, click to edit/add: Vital Signs - 24 hr 09/21/24 09:25 Temperature 97.5 F L Pulse Rate [Pulse Oximeter] 107 H Respiratory Rate 20 Blood Pressure [Le ft Arm] 118/84 Pulse Oximetry 97 Oxygen Delivery Me thod Room Air Documenting provider has reviewed patient's vital signs: yes
--- NOTE | 2024-09-21 18:21 | PC.NURSE ---
End of Shift: Patient pleasant and cooperative. Vitals performed this AM, patient stable, lungs clear, BS WNL, IV SL and intact. Patient on bedrest, moving to recliner was offered and patient declined. Patient denies pain and tolerating regular diet, eating independently. Patient also requested her liquids with no thickener and has done very well with eating and drinking with no aspiration.
[2024-09-21] MEDS: DULOXETINE 30 MG CAPSULE DR PO (20:12)
--- NOTE | 2024-09-22 05:02 | PC.NURSE ---
[id number] Pt comfortable during shift, repositioned q3h and prn for comfort. pt able to make needs known. swallowed pills whole without difficulty, drinking water without aspirating. denies pain, sob, chest pain or headache.
[2024-09-22] MEDS: OMEPRAZOLE 20 MG CAPSULE DR 40 MG PO ×2 (06:50→16:50)
[2024-09-22] MEDS: DULOXETINE 30 MG CAPSULE DR 60 MG PO (08:43)
[2024-09-22] MEDS: FAMOTIDINE 20 MG TABLET 40 MG PO ×2 (08:43→20:51)
[2024-09-22] MEDS: buPROPion HCL 100 MG TAB.SR.12H PO ×3 (08:43→20:51)
[2024-09-22] MEDS: GABAPENTIN 300 MG CAPSULE 600 MG PO ×2 (08:43→20:53)
[2024-09-22] MEDS: SODIUM CHLORIDE 0.9 % (FLUSH) 10 ML SYRINGE 5 ML IVF ×2 (08:44→20:53)
[2024-09-22 08:48] VITALS: BP 98/76; PULSE 112; RESP 20; TEMP 36.5; O2SAT 98
--- NOTE | 2024-09-22 14:33 | PC.SOCIAL ---
Addendum entered by IVELISSE Carrera 09/22/24 16:40: Discharge planning: [facility] provides free room and board to hospice patients. Social work to follow-up as needed. Original Note: Discharge planning: brewery cellar worker spoke to pt's daughter, Vandana, this morning who states that her brother Chandler and his , Sofya, who were supposed to come visit today will not be coming. Vandana is working on getting the social security award letter now. brewery cellar worker did get a copy of pt's car title, as she had it here with her belongings in the hospital. Vandana will also need to get a copy of pt's pension statement. brewery cellar worker did talk to Aneesh #[phone] at [facility] in the [facility] and she stated that they do not have openings right now and have nine people on their waitlist, but she shared that this worker could send a referral for her to review to see if the pt could be added to their waitlist. brewery cellar worker sent the referral to [facility] at fax number #[phone]. Social work to follow-up as needed.
--- NOTE | 2024-09-22 16:42 | P.IMPN_ITS ---
Progress Note: A&P Assessment and plan (1) Disseminated malignancy of unknown primary: Problem details: Patient has diffuse lymphadenopathy. This represents an unknown malignancy and she has declined further investigation. Quality of life and her very poor health status preclude significant further evaluation or treatment Status: Acute (2) Metabolic encephalopathy: Problem details: Patient had severely impaired cognitive function on admission 09/16/2024 having been found at home unable to get out of bed, care for herself or call for help. Modestly improved with fluid hydration. Suspect multiple contributing causes. For now will reduce large doses of psychoactive medications such as gabapentin and continue to monitor and evaluate. Appears unable to care for herself at this time. Possibility of lymphoma and leptomeningeal disease present. Status: Acute (3) Acute kidney injury: Problem details: Creatinine 1.2 on 09/06/2024. Creatinine 2.6 on this admission. Creatinine improved to 1.6. I suspect her KATIE is due to dehydration. Status: Acute (4) Acute dehydration: Problem details: Likely unable to manage to obtain and eat food or drink fluid for the last few days. Now better able to feed herself. Status: Acute (5) Lymphadenopathy, generalized: Problem details: CT chest abdomen pelvis on 09/16/2024 shows:1. Demonstration of markedly pathologic lymph nodes seen throughout the chest, abdomen and pelvis most prominently within the right axilla and left lower quadrant mesentery with a conglomerate up to 14 centimeter lymph node mass in the left lower quadrant abdomen. There is moderate omental caking. Overall, findings are concerning for likely lymphoproliferative malignancy such as lymphoma. Correlate with history of malignancy and/or follow-up with percutaneous tissue sampling of easily accessible lymph node in the right axilla for improved characterization. Declined biopsy of her right axillary lymphadenopathy to get a pathologic diagnosis. Status: Acute (6) Hypercalcemia: Problem details: Calcium 11.9 on 09/06/2024. Calcium improved from 11.5 on admission to 9.5 with hydration. Status: Acute (7) Fever of unknown origin: Problem details: Reported by her primary care doctor on 09/06/2024. Details are unclear. No significant fever in the hospital Status: Acute (8) Weight loss, abnormal: Problem details: Reported by her primary care doctor on 09/06/2024. Details unclear. Likely related to malignancy Status: Acute (9) History of atrial flutter: Problem details: Noted in her chart. On Eliquis and metoprolol. Currently in sinus rhythm Status: Acute (10) Major depression: Problem details: Details unclear. Continue home medications. Status: Acute (11) UTI (urinary tract infection): Problem details: Not reporting symptoms but unreliable historian. Markedly abnormal urine. Treat pending culture and clinical course Status: Acute (12) Weakness generalized: Problem details: Relatively profound bilateral lower extremity weakness. Unable to lift either leg off the bed. 3/5 strength in hip flexion. 4/5 strength in knee flexion and extension. 5/5 strength in ankle dorsiflexion and plantar flexion. As recently as 2 weeks prior to admission was able to get into her son's truck on her own power. Uncertain when she was last able to walk independently but her son visited her and said she was ambulatory 4 days prior to admission. Status: Acute (13) Palliative care encounter: Problem details: Conversation on 09/19/2024 with patient and her daughter and by phone her 2 sons to discuss her poor prognosis with unknown cancer diagnosis and severely failing health. She seems to understand her serious illness and was quite ready to accept this terminal diagnosis and a transition to hospice care. Prognosis is a few weeks. Status: Acute Plan Continue in-hospital for palliative care pending discharge for hospice care Time Spent With Patient Total time spent: Total time spent today is 30 minutes in coordination of care discussing with patient and family ongoing evaluation management Subjective Date Seen: 09/22/24 Interval history: Emergency department HPI: Vic Major is a 74 year old female brought in by EMS from her independent apartment at [address] after welfare check was called. Patient is known to have had an apartment well for checked 2 weeks ago. People from the facility reportedly had not seen her. She states she talked to her son last night, [facility] has the same phone number is we do for her son, it has been disconnected. Patient thinks that maybe her son did not pay his phone bill. Her phone is not charged and thus we cannot access it to see when the last time she talked to her son was, we are working on getting her phone charged. Per EMS, she was in feces, feces were all over the apartment and she was sitting in feces/urine. She had juice spilled around her mouth and chest that was dried. Her speech is noted to be slurred, she states it is been that way for couple of days. On her last apartment checked 2 weeks ago, patient was standing when they came in and went to lie down. Her blood sugar was 175, she is denying any pain but states she has been sick. She is a difficult to understand and a poor historian at this point. She does not get any meals per report, states she has been making her own meals. She cannot tell me the last time she went to the grocery store. Additional information on admission: Patient is ability to communicate and level of consciousness has improved on arrival to the inpatient yanes. She is oriented to being in the hospital. She recalls getting a ride here by ambulance but cannot tell me who called the ambulance or why the ambulance was called. She thinks that she was just fine yesterday but cannot give me any details of what happened yesterday or today. She does acknowledge that she is unable to walk today. This is been out ongoing problem but clearly much worse today. She tells me that she has an electric scooter in her apartment and that she walks with a cane. Today she is unable to get out of bed on her own and tells me she cannot stand without someone holding onto her. Ongoing attempts to contact her son, Ron, who lives in [place] have been unsuccessful. I have records indicating his phone number is [phone] but he does not answer at that number. The patient is unable to call on her phone. Initially it appeared that her phone battery was . After charging her phone however she does not remember how to open her phone with the password. She is unable to tell me the name of her friend and/or sister who are perhaps neighbor's or helpers for her. She also has a daughter, Vandana lives in [place]. She does not know how to contact her daughter either. She cannot get into her own phone. She does not know her past medical history. She was seen by her primary care provider, Dr. Renae Sheets in [place] on September 06. Notes from that visit indicate and evaluation was initiated for lymphadenopathy, fever of unknown origin, abnormal weight loss, sinusitis, hypertensive chronic kidney disease, thrombocytosis, B12 deficiency, history of atrial flutter, osteoporosis, mass of her chest wall, major depression, hypo magnesemia, hypercalcemia, hypervitaminosis D. patient does not remember any of the events or evaluation was done at that time or the results of that evaluation. Patient has remained relatively stable vitals but appears increasingly neurologically and functionally disabled. This morning she was unable to feed herself breakfast. She is basically unable to do any simple tasks. She is increasingly having difficulty communicating. Appears to lack insight into any of her current disabilities. 09/18/2024: Yesterday afternoon we are able to get in contact with 2 sons and daughter. The 2 sons have come to the hospital this morning and the daughter is hoping to get here later today. Family meeting today with the 2 sons, [id number] and the patient to discuss her current health status and diagnosis. In summary it appears that she has had a acute on chronic decline presumably related to her severe generalized lymphadenopathy which likely represents cancer possibly lymphoma. This has led to the point now where she is severely disabled with some mental decline that the family notes today as well as profound physical decline with her inability to stand or transfer. She also has unable to feed herself. It appears that she will not ever be able to live independently. Alternative living arrangements will be required. At this point her health status is such that she is likely not a candidate for significant cancer treatment. We will do some ongoing investigation including a possible biopsy and MRI of the brain to better understand her presumed cancer diagnosis. 09/19/2024: Today patient was seen with her daughter. Patient still able to c arry on a communication about her current health status and her goals of care. She also discusses with her daughter conversations that have occurred over the last few months where she has indicated that her quality of life has been poor. I reviewed with patient and daughter again the course of her recent illness to the extent that we know what has happened and now the diagnosis of new widely metastatic cancer. Patient and daughter both agreed that they would not like to proceed with further evaluation and treatment for her cancer. I noted that it is unlikely that she would be strong enough to tolerate significant cancer therapy anyway. She declined getting a needle biopsy of the lesion in her right axilla as she has decided she does not want to pursue any treatment. We discussed hospice and she was from air with this and open to this. Her daughter was also in agreement. I spoke on the phone with her sons Chandler and Arcadio who are also in agreement. 09/20/2024: Patient reports doing well at this time. Her main concern today is that she would like to be with her dog, abhinav. She reports no pain. No breathing problems. She was able to feed herself fairly well today. Still pr ofoundly weak. Fentanyl patch started yesterday 09/21/2024: Continues to receive comfort cares. She has no concerns today. She is alert and able to carry on a conversation about her circumstances. Still would like to see heard dog visit. Denies dyspnea, chest pain, abdominal pain, nausea, vomiting. Remains profoundly weak and bedridden 09/22/2024: Met with patient and her brother Chandler and his . Patient continues to understand that she is in the dying process. She wants to know how long this will take. She has forgotten much of what we had talked about earlier in the week. She has no concerns today. She reports no pain. She has been feeding herself. She still profoundly weak. Exam Narrative: Exam Narrative: She is alert and appears in no distress. She is able to carry on a conversation though is relative forgetful about recent events. Speech is fairly clear. She is quite pleasant and speaks openly and comfortably about her poor prognosis and end of life care. Breathing is unlabored. Const: Vital Signs, click to edit/add: Vital Signs - 24 hr 09/22/24 08:48 Temperature 97.7 F Pulse Rate [Pulse Oximeter] 112 H Respiratory Rate 20 Blood Pressure [Ri ght Arm] 98/76 Pulse Oximetry 98 Oxygen Delivery Me thod Room Air Documenting provider has reviewed patient's vital signs: yes
--- NOTE | 2024-09-22 18:01 | PC.NURSE ---
Addendum entered by Shannon Cheatham RN 09/22/24 18:40: fentanyl patch on left upper arm. Original Note: End of Shift: Patient pleasant and cooperative. Patient vitally stable, lungs clear, BS WNL, IV SL and intact. Patient denies pain. Patient on bedrest. Patient tolerating regular diet, urinating well. External cath tubing changed today, and cath changes x2. Patient alert and oriented x3 today, feeds self, and drinking beverages without thickener, patient requests beverages without thickener.
[2024-09-22] MEDS: DULOXETINE 30 MG CAPSULE DR PO (20:52)
[2024-09-22] MEDS: fentaNYL 25 MCG/HR PATCH 1 PATCH TRANSDERMA (20:56)
[2024-09-23] MEDS: OMEPRAZOLE 20 MG CAPSULE DR 40 MG PO ×2 (06:37→17:10)
--- NOTE | 2024-09-23 06:53 | PC.NURSE ---
Shift note ([id number]): Patient pleasant, alert and cooperative. Purewick patent and draining cloudy straw-colored urine with sediment. Denies any discomfort.?
--- NOTE | 2024-09-23 09:18 | PM.IMPN1 ---
Progress Note: A&P Assessment and plan (1) Disseminated malignancy of unknown primary: Problem details: Patient has diffuse lymphadenopathy. This represents an unknown malignancy and she has declined further investigation. Quality of life and her very poor health status preclude significant further evaluation or treatment. Status: Acute (2) Metabolic encephalopathy: Problem details: Patient had severely impaired cognitive function on admission 09/16/2024 having been found at home unable to get out of bed, care for herself or call for help. Modestly improved with fluid hydration. Suspect multiple contributing causes: Dehydration, hypercalcemia, For now will reduce large doses of psychoactive medications such as gabapentin and continue to monitor and evaluate. Appears unable to care for herself at this time. Possibility of lymphoma and leptomeningeal disease present. Status: Acute (3) Acute kidney injury: Problem details: Creatinine 1.2 on 09/06/2024. Creatinine 2.6 on this admission. Creatinine improved to 1.6. I suspect her KATIE was due to dehydration. Status: Acute (4) Acute dehydration: Problem details: Likely unable to manage to obtain and eat food or drink fluid for the last few days. Now better able to feed herself. Status: Acute (5) Lymphadenopathy, generalized: Problem details: CT chest abdomen pelvis on 09/16/2024 shows:1. Demonstration of markedly pathologic lymph nodes seen throughout the chest, abdomen and pelvis most prominently within the right axilla and left lower quadrant mesentery with a conglomerate up to 14 centimeter lymph node mass in the left lower quadrant abdomen. There is moderate omental caking. Overall, findings are concerning for likely lymphoproliferative malignancy such as lymphoma. Correlate with history of malignancy and/or follow-up with percutaneous tissue sampling of easily accessible lymph node in the right axilla for improved characterization. Declined biopsy of her right axillary lymphadenopathy to get a pathologic diagnosis. Status: Acute (6) Hypercalcemia: Problem details: Calcium 11.9 on 09/06/2024. Calcium improved from 11.5 on admission to 9.5 with hydration. Status: Acute (7) Fever of unknown origin: Problem details: Reported by her primary care doctor on 09/06/2024. Details are unclear. No significant fever or obvious infection in the hospital. Status: Acute (8) Weight loss, abnormal: Problem details: Reported by her primary care doctor on 09/06/2024. Details unclear. Likely related to malignancy Status: Acute (9) History of atrial flutter: Problem details: Noted in her chart. On Eliquis and metoprolol. Currently in sinus rhythm. Discontinue Eliquis as it is not consistent with goals of care Status: Acute (10) Major depression: Problem details: Details unclear. Continue home medications. Status: Acute (11) UTI (urinary tract infection): Problem details: Not reporting symptoms but unreliable historian. Markedly abnormal urine. Negative urine culture Status: Acute (12) Weakness generalized: Problem details: Relatively profound bilateral lower extremity weakness. This is acute on chronic, likely related to malignancy Unable to lift either leg off the bed. 3/5 strength in hip flexion. 4/5 strength in knee flexion and extension. 5/5 strength in ankle dorsiflexion and plantar flexion. As recently as 2 weeks prior to admission was able to get into her son's truck on her own power. Uncertain when she was last able to walk independently but her son visited her and said she was ambulatory 4 days prior to admission. Status: Acute (13) Palliative care encounter: Problem details: Conversation on 09/19/2024 with patient and her daughter and by phone her 2 sons to discuss her poor prognosis with unknown cancer diagnosis and severely failing health. She seems to understand her serious illness and was quite ready to accept this terminal diagnosis and a transition to hospice care. Prognosis is a few weeks. Status: Acute (14) Cognitive impairment: Problem details: Patient was markedly impaired on admission but is much improved with hydration and nutrition. Suspect some underlying cognitive impairment as patient is forgetful day-to-day. May have leptomeningeal disease Status: Acute Plan Continue in-hospital for palliative care pending disposition for ongoing hospice care Subjective Date Seen: 09/23/24 Interval history: Emergency department HPI: Vic Major is a 74 year old female brought in by EMS from her independent apartment at [address] after welfare check was called. Patient is known to have had an apartment well for checked 2 weeks ago. People from the facility reportedly had not seen her. She states she talked to her son last night, [facility] has the same phone number is we do for her son, it has been disconnected. Patient thinks that maybe her son did not pay his phone bill. Her phone is not charged and thus we cannot access it to see when the last time she talked to her son was, we are working on getting her phone charged. Per EMS, she was in feces, feces were all over the apartment and she was sitting in feces/urine. She had juice spilled around her mouth and chest that was dried. Her speech is noted to be slurred, she states it is been that way for couple of days. On her last apartment checked 2 weeks ago, patient was standing when they came in and went to lie down. Her blood sugar was 175, she is denying any pain but states she has been sick. She is a difficult to understand and a poor historian at this point. She does not get any meals per report, states she has been making her own meals. She cannot tell me the last time she went to the grocery store. Additional information on admission: Patient is ability to communicate and level of consciousness has improved on arrival to the inpatient yanes. She is oriented to being in the hospital. She recalls getting a ride here by ambulance but cannot tell me who called the ambulance or why the ambulance was called. She thinks that she was just fine yesterday but cannot give me any details of what happened yesterday or today. She does acknowledge that she is unable to walk today. This is been out ongoing problem but clearly much worse today. She tells me that she has an electric scooter in her apartment and that she walks with a cane. Today she is unable to get out of bed on her own and tells me she cannot stand without someone holding onto her. Ongoing attempts to contact her son, Ron, who lives in [place] have been unsuccessful. I have records indicating his phone number is [phone] but he does not answer at that number. The patient is unable to call on her phone. Initially it appeared that her phone battery was . After charging her phone however she does not remember how to open her phone with the password. She is unable to tell me the name of her friend and/or sister who are perhaps neighbor's or helpers for her. She also has a daughter, Vandana lives in [place]. She does not know how to contact her daughter either. She cannot get into her own phone. She does not know her past medical history. She was seen by her primary care provider, Dr. Renae Sheets in [place] on September 06. Notes from that visit indicate and evaluation was initiated for lymphadenopathy, fever of unknown origin, abnormal weight loss, sinusitis, hypertensive chronic kidney disease, thrombocytosis, B12 deficiency, history of atrial flutter, osteoporosis, mass of her chest wall, major depression, hypo magnesemia, hypercalcemia, hypervitaminosis D. patient does not remember any of the events or evaluation was done at that time or the results of that evaluation. Patient has remained relatively stable vitals but appears increasingly neurologically and functionally disabled. This morning she was unable to feed herself breakfast. She is basically unable to do any simple tasks. She is increasingly having difficulty communicating. Appears to lack insight into any of her current disabilities. 09/18/2024: Yesterday afternoon we are able to get in contact with 2 sons and daughter. The 2 sons have come to the hospital this morning and the daughter is hoping to get here later today. Family meeting today with the 2 sons, [id number] and the patient to discuss her current health status and diagnosis. In summary it appears that she has had a acute on chronic decline presumably related to her severe generalized lymphadenopathy which likely represents cancer possibly lymphoma. This has led to the point now where she is severely disabled with some mental decline that the family notes today as well as profound physical decline with her inability to stand or transfer. She also has unable to feed herself. It appears that she will not ever be able to live independently. Alternative living arrangements will be required. At this point her health status is such that she is likely not a candidate for significant cancer treatment. We will do some ongoing investigation including a possible biopsy and MRI of the brain to better understand her presumed cancer diagnosis. 09/19/2024: Today patient was seen with her daughter. Patient still able to carry on a communication about her current health status and her goals of care. She also discusses with her daughter conversations that have occurred over the last few months where she has indicated that her quality of life has been poor. I reviewed with patient and daughter again the course of her recent illness to the extent that we know what has happened and now the diagnosis of new widely metastatic cancer. Patient and daughter both agreed that they would not like to proceed with further evaluation and treatment for her cancer. I noted that it is unlikely that she would be strong enough to tolerate significant cancer therapy anyway. She declined getting a needle biopsy of the lesion in her right axilla as she has decided she does not want to pursue any treatment. We discussed hospice and she was from air with this and open to this. Her daughter was also in agreement. I spoke on the phone with her sons Chandler and Arcadio who are also in agreement. 09/20/2024: Patient reports doing well at this time. Her main concern today is that she would like to be with her dog, abhinav. She reports no pain. No breathing problems. She was able to feed herself fairly well today. Still profoundly weak. Fentanyl patch started yesterday 09/21/2024: Continues to receive comfort cares. She has no concerns today. She is alert and able to carry on a conversation about her circumstances. Still would like to see heard dog visit. Denies dyspnea, chest pain, abdominal pain, nausea, vomiting. Remains profoundly weak and bedridden 09/22/2024: Met with patient and her brother Chandler and his . Patient continues to understand that she is in the dying process. She wants to know how long this will take. She has forgotten much of what we had talked about earlier in the week. She has no concerns today. She reports no pain. She has been feeding herself. She still profoundly weak. 09/23/2024: Patient reports still feeling well. No dyspnea, no pain, eating and drinking fairly well. We again reviewed her diagnosis and plan for palliative care. She verbalizes understanding of her terminal condition Disposition plans still pending Exam Narrative: Exam Narrative: She is alert, pleasant and in no distress. Speech is fluent. Breathing is unlabored Const: Documenting provider has reviewed patient's vital signs: yes
[2024-09-23] MEDS: FAMOTIDINE 20 MG TABLET 40 MG PO ×2 (09:31→20:17)
[2024-09-23] MEDS: buPROPion HCL 100 MG TAB.SR.12H PO ×3 (09:31→20:18)
[2024-09-23] MEDS: DULOXETINE 30 MG CAPSULE DR 60 MG PO (09:32)
[2024-09-23] MEDS: GABAPENTIN 300 MG CAPSULE 600 MG PO ×2 (09:32→20:17)
[2024-09-23] MEDS: SODIUM CHLORIDE 0.9 % (FLUSH) 10 ML SYRINGE 5 ML IVF ×2 (09:33→20:24)
--- NOTE | 2024-09-23 13:34 | PC.NURSE ---
End of shioft report: Pts purewick was changed this shift with a medium sized BM. Fentanyl patch is intact on right shoulder. Meplix on coccyx C/D/I. Denies pain and SOB. Tolerates regular diet and she was alert, clear and orientated today. Tolerates repositioning in bed.
--- NOTE | 2024-09-23 14:07 | PC.SOCIAL ---
Addendum entered by IVELISSE Carrera 09/23/24 15:26: Discharge planning: coloring room worker spoke to Lamar Saeed with [facility] this afternoon and found out that the pt has another bank account with [employer] where her pension is deposited into. coloring room worker also verified that with the pt and she confirmed. Lamar has requested bank statements from [employer] for her APS investigation, but shared that she could not re-release them to this worker for the pt's MA application, but could give them to the financial worker that will be working on the pt's MA application. Pt's daughter, Vandana, is still working on getting pt's social security award letter and pension award letter for the MA application. In addition, this worker faxed over more needed documents to [facility] this afternoon, fax #[phone]. Social work to follow-up as needed. Original Note: Discharge planning: coloring room worker talked to Aneesh at [facility] and provided her with additional information that she requested. The information was faxed to [facility] at #[phone]. Social work to follow-up as needed.
[2024-09-23] MEDS: DULOXETINE 30 MG CAPSULE DR PO (20:18)
[2024-09-24] MEDS: OMEPRAZOLE 20 MG CAPSULE DR 40 MG PO ×2 (05:47→16:47)
--- NOTE | 2024-09-24 06:25 | PC.NURSE ---
End of shift [id number]: A&O pleasant and cooperative. Denies pain. Turn and repo per pt request. External catheter in place. using call light appropriately.
[2024-09-24] MEDS: GABAPENTIN 300 MG CAPSULE 600 MG PO ×2 (09:23→21:10)
[2024-09-24] MEDS: FAMOTIDINE 20 MG TABLET 40 MG PO ×2 (09:24→21:10)
[2024-09-24] MEDS: SODIUM CHLORIDE 0.9 % (FLUSH) 10 ML SYRINGE 5 ML IVF ×2 (09:24→21:11)
[2024-09-24] MEDS: DULOXETINE 30 MG CAPSULE DR 60 MG PO (09:24)
[2024-09-24] MEDS: buPROPion HCL 100 MG TAB.SR.12H PO ×3 (09:24→21:10)
--- NOTE | 2024-09-24 10:29 | P.IMPN_ITS ---
Progress Note: A&P Assessment and plan (1) Disseminated malignancy of unknown primary: Problem details: - diffuse adenopathy, presumably lymphoma - patient has declined workup, comfort-focused care Status: Acute (2) Metabolic encephalopathy: Problem details: - severely impaired cognitive function on admission 09/16/2024, found at home unable to get out of bed, care for herself or call for help - improved to baseline, still weak and unable to care for self Status: Acute (3) Acute kidney injury: Problem details: - creatinine 1.2 on 09/06/2024. Creatinine 2.6 on this admission. Creatinine improved to 1.6, likely prerenal/dehydration Status: Acute (4) Lymphadenopathy, generalized: Problem details: - CT C/A/P 09/16/2024: 1. Demonstration of markedly pathologic lymph nodes seen throughout the chest, abdomen and pelvis most prominently within the right axilla and left lower quadrant mesentery with a conglomerate up to 14 centimeter lymph node mass in the left lower quadrant abdomen. There is moderate omental caking. Overall, findings are concerning for likely lymphoproliferative malignancy such as lymphoma. Correlate with history of malignancy and/or follow-up with percutaneous tissue sampling of easily accessible lymph node in the right axilla for improved characterization. Declined biopsy of her right axillary lymphadenopathy to get a pathologic diagnosis. Status: Acute (5) Hypercalcemia: Problem details: - calcium 11.9 on 09/06/2024. Calcium improved from 11.5 on admission to 9.5 wi th hydration Status: Acute (6) Fever of unknown origin: Problem details: Reported by her primary care doctor on 09/06/2024. Details are unclear. No significant fever or obvious infection in the hospital. Status: Acute (7) Weight loss, abnormal: Problem details: - reported by her primary care doctor on 09/06/2024. Details unclear. Likely related to malignancy Status: Acute (8) History of atrial flutter: Problem details: - admitted on Eliquis and metoprolol, currently in sinus rhythm - Eliquis has been d/c'd as not consistent with goals of care Status: Acute (9) Major depression: Problem details: - continue home meds Status: Acute (10) Weakness generalized: Problem details: - Relatively profound bilateral lower extremity weakness. This is acute on chronic, likely related to malignancy Unable to lift either leg off the bed. 3/5 strength in hip flexion. 4/5 strength in knee flexion and extension. 5/5 strength in ankle dorsiflexion and plantar flexion. As recently as 2 weeks prior to admission was able to get into her son's truck on her own power. Uncertain when she was last able to walk independently but her son visited her and said she was ambulatory 4 days prior to admission. Status: Acute (11) Palliative care encounter: Problem details: - patient and family aware of terminal status, comfortable with comfort-focused measures Status: Acute (12) Cognitive impairment: Problem details: - markedly impaired on admit, much improved with hydration and nutrition - suspect some underlying cognitive impairment as patient is forgetful, may have leptomeningeal disease contributing Status: Acute Plan - per above, awaiting hospice placement Subjective Date Seen: 09/24/24 Interval history: Vic was admitted to the hospital on 09/16/24 for weakness, confusion, KATIE. During stay, diagnosed with widely metastatic malignancy on imaging, presumably lymphoma. She has elected for comfort-focused measures, awaiting placement for hospice. Family in agreement with plan. Social work team assisting with placement. Current medications include: - fentanyl patch, gabapentin - Cymbalta, bupropion Vic has no concerns for hospitalist team this morning, no pain. Exam Narrative: Exam Narrative: Vic is laying comfortably in bed, appears chronically ill but nontoxic Large hard mass in R axilla, no ttp Cobblestoning palpated in abdomen, no ttp
--- NOTE | 2024-09-24 17:54 | PC.NURSE ---
End of Shift ([id number]): Patient pleasant and cooperative, A&O. Denies pain this shift. Repositioned as needed this shift. Tolerating regular diet. Eulogio patent and draining.
[2024-09-24] MEDS: DULOXETINE 30 MG CAPSULE DR PO (21:10)
--- NOTE | 2024-09-25 02:49 | PC.NURSE ---
[id number]: Pt alert and oriented. Pain rated 0/10. Regular diet. Pt had large bm, mepilex on sacral area replaced with two small square mepilex instead. The coccyx had one small open wound the size of an eraser tip and the left buttock had an open area the size of a dime. Pt also had a small open wound on her labial area that was left open to air. Rafia area macerated, barrier cream applied and purewick changed and in place. Pt turned and repositioned q 3-4 h. Pt in bed, appears to be resting, call light within reach. ?
[2024-09-25] MEDS: OMEPRAZOLE 20 MG CAPSULE DR 40 MG PO ×2 (06:02→17:12)
[2024-09-25] MEDS: FAMOTIDINE 20 MG TABLET 40 MG PO ×2 (09:29→20:27)
[2024-09-25] MEDS: DULOXETINE 30 MG CAPSULE DR 60 MG PO (09:29)
[2024-09-25] MEDS: SODIUM CHLORIDE 0.9 % (FLUSH) 10 ML SYRINGE 5 ML IVF (09:29)
[2024-09-25] MEDS: GABAPENTIN 300 MG CAPSULE 600 MG PO ×2 (09:29→20:27)
[2024-09-25] MEDS: buPROPion HCL 100 MG TAB.SR.12H PO ×3 (09:29→20:26)
--- NOTE | 2024-09-25 12:33 | PM.IMPN1 ---
Progress Note: A&P Assessment and plan (1) Disseminated malignancy of unknown primary: Problem details: - diffuse adenopathy, presumably lymphoma - patient has declined workup, comfort-focused care Status: Acute (2) Metabolic encephalopathy: Problem details: - severely impaired cognitive function on admission 09/16/2024, found at home unable to get out of bed, care for herself or call for help - improved to baseline, still weak and unable to care for self Status: Acute (3) Acute kidney injury: Problem details: - creatinine 1.2 on 09/06/2024. Creatinine 2.6 on this admission. Creatinine improved to 1.6, likely prerenal/dehydration Status: Acute (4) Lymphadenopathy, generalized: Problem details: - CT C/A/P 09/16/2024: 1. Demonstration of markedly pathologic lymph nodes seen throughout the chest, abdomen and pelvis most prominently within the right axilla and left lower quadrant mesentery with a conglomerate up to 14 centimeter lymph node mass in the left lower quadrant abdomen. There is moderate omental caking. Overall, findings are concerning for likely lymphoproliferative malignancy such as lymphoma. Correlate with history of malignancy and/or follow-up with percutaneous tissue sampling of easily accessible lymph node in the right axilla for improved characterization. - has since declined biopsy of her right axillary lymphadenopathy to get a pathologic diagnosis Status: Acute (5) Hypercalcemia: Problem details: - calcium 11.9 on 09/06/2024. Calcium improved from 11.5 on admission to 9.5 with hydration Status: Acute (6) Fever of unknown origin: Problem details: Reported by her primary care doctor on 09/06/2024. Details are unclear. No significant fever or obvious infection in the hospital. Status: Acute (7) Weight loss, abnormal: Problem details: - reported by her primary care doctor on 09/06/2024. Details unclear. Likely related to malignancy Status: Acute (8) History of atrial flutter: Problem details: - admitted on Eliquis and metoprolol, currently in sinus rhythm - Eliquis has been d/c'd as not consistent with goals of care Status: Acute (9) Major depression: Problem details: - continue home meds Status: Acute (10) Weakness generalized: Problem details: - Relatively profound bilateral lower extremity weakness. This is acute on chronic, likely related to malignancy Unable to lift either leg off the bed. 3/5 strength in hip flexion. 4/5 strength in knee flexion and extension. 5/5 strength in ankle dorsiflexion and plantar flexion. As recently as 2 weeks prior to admission was able to get into her son's truck on her own power. Uncertain when she was last able to walk independently but her son visited her and said she was ambulatory 4 days prior to admission. Status: Acute (11) Palliative care encounter: Problem details: - patient and family aware of terminal status, comfortable with comfort-focused measures Status: Acute (12) Cognitive impairment: Problem details: - markedly impaired on admit, much improved with hydration and nutrition - suspect some underlying cognitive impairment as patient is forgetful, may have leptomeningeal disease contributing Status: Acute Plan - awaiting hospice placement Subjective Date Seen: 09/25/24 Interval history: Vic was admitted to the hospital on 09/16/24 for weakness, confusion, KATIE. During stay, diagnosed with widely metastatic malignancy on imaging, presumably lymphoma. She has elected for comfort-focused measures, awaiting placement for hospice. Family in agreement with plan. Social work team assisting with placement. Current medications include: - fentanyl patch, gabapentin - Cymbalta, bupropion, Pepcid Vic has no concerns for hospitalist team this morning, no pain. She's eating well. No concerns from nursing staff. Exam Narrative: Exam Narrative: Laying comfortably in bed, appropriately conversive, nontoxic
--- NOTE | 2024-09-25 18:27 | PC.NURSE ---
End of Shift: Patient pleasant and cooperative. Afebrile. Denies pain. Up to chair with 2 assist and Estefania Steady. Turn and reposition while in bed. Tolerating regular diet with no nausea.
[2024-09-25] MEDS: DULOXETINE 30 MG CAPSULE DR PO (20:27)
[2024-09-25] MEDS: fentaNYL 25 MCG/HR PATCH 1 PATCH TRANSDERMA (22:18)
[2024-09-26] MEDS: OMEPRAZOLE 20 MG CAPSULE DR 40 MG PO ×2 (06:47→18:15)
--- NOTE | 2024-09-26 07:09 | PC.NURSE ---
Pt alert and oriented. Pain rated 0/10. Regular diet. Purewick patent and draining. Pt turned and repositioned q 3-4 h. Pt in bed, appears to be resting, call light within reach. ?
[2024-09-26] MEDS: FAMOTIDINE 20 MG TABLET 40 MG PO ×2 (08:31→20:26)
[2024-09-26] MEDS: buPROPion HCL 100 MG TAB.SR.12H PO ×3 (08:31→20:26)
[2024-09-26] MEDS: GABAPENTIN 300 MG CAPSULE 600 MG PO ×2 (08:31→20:27)
[2024-09-26] MEDS: DULOXETINE 30 MG CAPSULE DR 60 MG PO (08:34)
--- NOTE | 2024-09-26 14:17 | PC.NURSE ---
Phone/bag given to daughter Vandana today.
--- NOTE | 2024-09-26 15:38 | PM.IMPN1 ---
Progress Note: A&P Assessment and plan (1) Disseminated malignancy of unknown primary: Problem details: - diffuse adenopathy, presumably lymphoma - patient has declined workup, comfort-focused care Status: Acute (2) Metabolic encephalopathy: Problem details: - severely impaired cognitive function on admission 09/16/2024, found at home unable to get out of bed, care for herself or call for help - improved to baseline, still weak and unable to care for self Status: Acute (3) Acute kidney injury: Problem details: - creatinine 1.2 on 09/06/2024. Creatinine 2.6 on this admission. Creatinine improved to 1.6, likely prerenal/dehydration Status: Acute (4) Lymphadenopathy, generalized: Problem details: - CT C/A/P 09/16/2024: 1. Demonstration of markedly pathologic lymph nodes seen throughout the chest, abdomen and pelvis most prominently within the right axilla and left lower quadrant mesentery with a conglomerate up to 14 centimeter lymph node mass in the left lower quadrant abdomen. There is moderate omental caking. Overall, findings are concerning for likely lymphoproliferative malignancy such as lymphoma. Correlate with history of malignancy and/or follow-up with percutaneous tissue sampling of easily accessible lymph node in the right axilla for improved characterization. - has since declined biopsy of her right axillary lymphadenopathy to get a pathologic diagnosis Status: Acute (5) Hypercalcemia: Problem details: - calcium 11.9 on 09/06/2024. Calcium improved from 11.5 on admission to 9.5 with hydration Status: Acute (6) Fever of unknown origin: Problem details: Reported by her primary care doctor on 09/06/2024. Details are unclear. No significant fever or obvious infection in the hospital. Status: Acute (7) Weight loss, abnormal: Problem details: - reported by her primary care doctor on 09/06/2024. Details unclear. Likely related to malignancy Status: Acute (8) History of atrial flutter: Problem details: - admitted on Eliquis and metoprolol, currently in sinus rhythm - Eliquis has been d/c'd as not consistent with goals of care Status: Acute (9) Major depression: Problem details: - continue home meds Status: Acute (10) Weakness generalized: Problem details: - Relatively profound bilateral lower extremity weakness. This is acute on chronic, likely related to malignancy Unable to lift either leg off the bed. 3/5 strength in hip flexion. 4/5 strength in knee flexion and extension. 5/5 strength in ankle dorsiflexion and plantar flexion. As recently as 2 weeks prior to admission was able to get into her son's truck on her own power. Uncertain when she was last able to walk independently but her son visited her and said she was ambulatory 4 days prior to admission. Status: Acute (11) Palliative care encounter: Problem details: - patient and family aware of terminal status, comfortable with comfort-focused measures Status: Acute (12) Cognitive impairment: Problem details: - markedly impaired on admit, much improved with hydration and nutrition - suspect some underlying cognitive impairment as patient is forgetful, may have leptomeningeal disease contributing Status: Acute Plan awaiting placement Subjective Date Seen: 09/26/24 Interval history: Vic was admitted to the hospital on 09/16/24 for weakness, confusion, KATIE. During stay, diagnosed with widely metastatic malignancy on imaging, presumably lymphoma. She has elected for comfort-focused measures, awaiting placement for hospice. Family in agreement with plan. Social work team assisting with placement. Current medications include: - fentanyl patch, gabapentin - Cymbalta, bupropion, Pepcid Vic has no concerns for hospitalist or nursing staff. Tolerating po intake Exam Narrative: Exam Narrative: appropriately interactive
--- NOTE | 2024-09-26 16:22 | PC.NURSE ---
End of shift report: Patient denies pain at this time. Denies N/V. Has a fentanyl patch on the left shoulder. Coloplast C/D/I to coccyx. Reddened labia folds noted. External catheter changed 2x. Repo q2H. Visiting with family at the bedside.
--- NOTE | 2024-09-26 16:30 | PC.SOCIAL ---
Discharge planning: shell worker continued to work on pt's MA application proofs today. shell worker was able to obtain the pt's pension statement to add to the MA application. We are still waiting on the social security award letter which pt's daughter is working on. shell worker also talked to the pt and her daughter about completing a health care directive again per the request of Lamar Blas with [facility]. Social work to follow-up as needed.
[2024-09-26] MEDS: DULOXETINE 30 MG CAPSULE DR PO (20:26)
--- NOTE | 2024-09-26 22:24 | PC.NURSE ---
Patient oriented to self. Remained in bed during shift. No reports of pain and uses call light appropriately. Patient refused reposition twice when nurse attempted to repo. Nurse educated patient on purpose of turn and repositioning and patient still refused. Nurse able to reposition patient before bed. Took pills with water. Nursing to continue to provide comfort cares.
[2024-09-27] MEDS: FAMOTIDINE 20 MG TABLET 40 MG PO ×2 (08:27→20:17)
[2024-09-27] MEDS: DULOXETINE 30 MG CAPSULE DR 60 MG PO (08:27)
[2024-09-27] MEDS: GABAPENTIN 300 MG CAPSULE 600 MG PO ×2 (08:28→20:17)
[2024-09-27] MEDS: buPROPion HCL 100 MG TAB.SR.12H PO ×3 (08:28→20:18)
[2024-09-27] MEDS: OMEPRAZOLE 20 MG CAPSULE DR 40 MG PO ×2 (08:31→17:46)
--- NOTE | 2024-09-27 08:56 | PC.NURSE ---
0830: Patient repo and cares preformed, gown and purewick changed. No fentanyl patch was noted on left shoulder. Patient verbalized she has no memory of patch being removed.
[2024-09-27] MEDS: fentaNYL 25 MCG/HR PATCH 1 PATCH TRANSDERMA (09:22)
--- NOTE | 2024-09-27 12:35 | PC.SOCIAL ---
Discharge planning: Pt has been officially added to the waitlist at [facility] in [place]. Their nursing staff did state that the pt would not be able to come to their facility on the Fetanyl patch and that it would need to be changed to a different type of pain killer. The pt is not able to come on Eloquis either. intake worker will share this update with the provider on duty in morning rounds. intake worker also sent the pt's MA-LTC application into [facility] today with all the needed proofs attached except for the [employer] statements, which Lamar Saeed with [facility] will be getting and submitting to the financial worker that is assigned to the pt's MA application. Social work to follow-up as needed.
--- NOTE | 2024-09-27 13:08 | PC.NURSE ---
End of shift report: Patient denies pain, N/V, and SOB. Fentanyl patch applied to right shoulder intact with tegaderm per pharmacy. Skin care, gown, and linens changed. Up to the chair with the guido steady. Tolerating regular diet. External catheter changed. Mepilex on coccyx changed and C/D/I. Tolerating reposition Q2H.
--- NOTE | 2024-09-27 15:43 | PM.IMPN1 ---
Subjective Date Seen: 09/27/24 Interval history: Vic was admitted to the hospital on 09/16/24 for weakness, confusion, KATIE. During stay, diagnosed with widely metastatic malignancy on imaging, presumably lymphoma. She has elected for comfort-focused measures, awaiting placement for hospice. Family in agreement with plan. Social work team assisting with placement. Current medications include: - fentanyl patch, gabapentin - Cymbalta, bupropion, Pepcid Vic has no concerns for hospitalist or nursing staff. Tolerating po intake. Exam Narrative: Exam Narrative: Resting comfortably in bed, watching the [employer] channel Assessment and Plan Assessment and plan (1) Disseminated malignancy of unknown primary: Problem comment: - diffuse adenopathy, presumably lymphoma - patient has declined workup, comfort-focused care Status: Acute (2) Metabolic encephalopathy: Problem comment: - severely impaired cognitive function on admission 09/16/2024, found at home unable to get out of bed, care for herself or call for help - improved to baseline, still weak and unable to care for self Status: Acute (3) Acute kidney injury: Problem comment: - creatinine 1.2 on 09/06/2024. Creatinine 2.6 on this admission. Creatinine improved to 1.6, likely prerenal/dehydration Status: Acute (4) Lymphadenopathy, generalized: Problem comment: - CT C/A/P 09/16/2024: 1. Demonstration of markedly pathologic lymph nodes seen throughout the chest, abdomen and pelvis most prominently within the right axilla and left lower quadrant mesentery with a conglomerate up to 14 centimeter lymph node mass in the left lower quadrant abdomen. There is moderate omental caking. Overall, findings are concerning for likely lymphoproliferative malignancy such as lymphoma. Correlate with history of malignancy and/or follow-up with percutaneous tissue sampling of easily accessible lymph node in the right axilla for improved characterization. - has since declined biopsy of her right axillary lymphadenopathy to get a pathologic diagnosis Status: Acute (5) Hypercalcemia: Problem comment: - calcium 11.9 on 09/06/2024. Calcium improved from 11.5 on admission to 9.5 with hydration Status: Acute (6) Fever of unknown origin: Problem comment: Reported by her primary care doctor on 09/06/2024. Details are unclear. No significant fever or obvious infection in the hospital. Status: Acute (7) Weight loss, abnormal: Problem comment: - reported by her primary care doctor on 09/06/2024. Details unclear. Likely related to malignancy Status: Acute (8) History of atrial flutter: Problem comment: - admitted on Eliquis and metoprolol, currently in sinus rhythm - Eliquis has been d/c'd as not consistent with goals of care Status: Acute (9) Major depression: Problem comment: - continue home meds Status: Acute (10) Weakness generalized: Problem comment: - Relatively profound bilateral lower extremity weakness. This is acute on chronic, likely related to malignancy Unable to lift either leg off the bed. 3/5 strength in hip flexion. 4/5 strength in knee flexion and extension. 5/5 strength in ankle dorsiflexion and plantar flexion. As recently as 2 weeks prior to admission was able to get into her son's truck on her own power. Uncertain when she was last able to walk independently but her son visited her and said she was ambulatory 4 days prior to admission. Status: Acute (11) Palliative care encounter: Problem comment: - patient and family aware of terminal status, comfortable with comfort-focused measures Status: Acute (12) Cognitive impairment: Problem comment: - markedly impaired on admit, much improved with hydration and nutrition - suspect some underlying cognitive impairment as patient is forgetful, may have leptomeningeal disease contributing Status: Acute Plan - awaiting hospice placement
[2024-09-27] MEDS: DULOXETINE 30 MG CAPSULE DR PO (20:17)
[2024-09-28] MEDS: OMEPRAZOLE 20 MG CAPSULE DR 40 MG PO ×2 (06:14→17:20)
--- NOTE | 2024-09-28 06:56 | PC.NURSE ---
End of shift summary: Assumed care of pt at 2300. She's been alert & oriented to self & place overnight. Slept well in between cares. Repositioned intermittently and at patient's request. External catheter intact & patent/draining. Pt had no c/o pain, nausea or dizziness for ad copy writer. Fentanyl patch in place on right outer arm. Bed alarm in place.
[2024-09-28] MEDS: GABAPENTIN 300 MG CAPSULE 600 MG PO ×2 (08:43→20:29)
[2024-09-28] MEDS: buPROPion HCL 100 MG TAB.SR.12H PO ×3 (08:43→20:28)
[2024-09-28] MEDS: FAMOTIDINE 20 MG TABLET 40 MG PO ×2 (08:43→20:28)
[2024-09-28] MEDS: DULOXETINE 30 MG CAPSULE DR 60 MG PO (08:43)
--- NOTE | 2024-09-28 13:08 | PC.SOCIAL ---
Addendum entered by IVELISSE Carrera 09/28/24 16:31: Discharge planning: antichecking iron worker attempted to have the pt complete/sign a HCD(per the request of [facility]) today with a notary from the [facility], but the pt was too sleepy. antichecking iron worker will reattempt the HCD tomorrow with the pt. Social work to follow-up as needed. Addendum entered by IVELISSE Carrera 09/28/24 16:28: Discharge planning: [facility] in [place] is reviewing pt's referral for MA pending. Social work to follow-up as needed. Original Note: Discharge planning: antichecking iron worker spoke with pt and her daughter about sending a referral to [facility] in [place], as they do typically take MA pending applications and the pt and her daughter wanted this worker to look elsewhere because of [facility] 2/5 rating with [facility] [place] [facility]. Social work to follow-up as needed.
--- NOTE | 2024-09-28 14:50 | P.IMPN_ITS ---
Subjective Date Seen: 09/28/24 Interval history: Daily Progress Note - Hospital Medicine #: 13 CC: Cognitive decline; metastatic cancer (presumed lymphoma without workup) 24 HOUR UPDATE: Vic has no concerns for hospitalist or nursing staff. Tolerating po intake. Current medications include: - fentanyl patch, gabapentin - Cymbalta, bupropion, Pepcid Notable Labs, Micro, Rads, Interventions: none No change in exam from previous encounters. Disposition/Potential discharge - waiting [facility]; MA application filed. Today I spent 50minutes seeing the patient, reviewing Expanse and EPIC notes/diagnostics, discussing the care plan with our care time that includes social work, PT/OT, pharmacy, RT, nursing home and documenting my impressions and plan in the medical record. Assessment and Plan Assessment and plan (1) Disseminated malignancy of unknown primary: Problem comment: - diffuse adenopathy, presumably lymphoma - patient has declined workup, comfort-focused care Status: Acute (2) Metabolic encephalopathy: Problem comment: - severely impaired cognitive function on admission 09/16/2024, found at home unable to get out of bed, care for herself or call for help - improved to baseline, still weak and unable to care for self Status: Acute (3) Acute kidney injury: Problem comment: - creatinine 1.2 on 09/06/2024. Creatinine 2.6 on this admission. Creatinine improved to 1.6, likely prerenal/dehydration Status: Acute (4) Lymphadenopathy, generalized: Problem comment: - CT C/A/P 09/16/2024: 1. Demonstration of markedly pathologic lymph nodes seen throughout the chest, abdomen and pelvis most prominently within the right axilla and left lower qu adrant mesentery with a conglomerate up to 14 centimeter lymph node mass in the left lower quadrant abdomen. There is moderate omental caking. Overall, findings are concerning for likely lymphoproliferative malignancy such as lymphoma. Correlate with history of malignancy and/or follow-up with percutaneous tissue sampling of easily accessible lymph node in the right axilla for improved characterization. - has since declined biopsy of her right axillary lymphadenopathy to get a pathologic diagnosis Status: Acute (5) Hypercalcemia: Problem comment: - calcium 11.9 on 09/06/2024. Calcium improved from 11.5 on admission to 9.5 with hydration Status: Acute (6) Fever of unknown origin: Problem comment: Reported by her primary care doctor on 09/06/2024. Details are unclear. No significant fever or obvious infection in the hospital. Status: Acute (7) Weight loss, abnormal: Problem comment: - reported by her primary care doctor on 09/06/2024. Details unclear. Likely related to malignancy Status: Acute (8) History of atrial flutter: Problem comment: - admitted on Eliquis and metoprolol, currently in sinus rhythm - Eliquis has been d/c'd as not consistent with goals of care Status: Acute (9) Major depression: Problem comment: - continue home meds Status: Acute (10) Weakness generalized: Problem comment: - Relatively profound bilateral lower extremity weakness. This is acute on chronic, likely related to malignancy Unable to lift either leg off the bed. 3/5 strength in hip flexion. 4/5 strength in knee flexion and extension. 5/5 strength in ankle dorsiflexion and plantar flexion. As recently as 2 weeks prior to admission was able to get into her son's truck on her own power. Uncertain when she was last able to walk independently but her son visited her and said she was ambulatory 4 days prior to admission. Status: Acute (11) Palliative care encounter: Problem comment: - patient and family aware of terminal status, comfortable with comfort-focused measures Status: Acute (12) Cognitive impairment: Problem comment: - markedly impaired on admit, much improved with hydration and nutrition - suspect some underlying cognitive impairment as patient is forgetful, may have leptomeningeal disease contributing Status: Acute
--- NOTE | 2024-09-28 19:27 | PC.NURSE ---
End of Shift: Patient pleasant and cooperative. Only A&O to self. Patient denies pain this shift. Fentanyl patch to right outer shoulder. Patient spent some of shift in chair, otherwise repositioning. This morning we were able to get her to the chair with A2 and guido steady. This afternoon we needed 3A with EZ stand due to weakness. Patient refused lunch and dinner this shift. Takes pills whole in applesauce. [place] placed this shift. No BM this shift.
[2024-09-28] MEDS: DULOXETINE 30 MG CAPSULE DR PO (20:28)
[2024-09-29] MEDS: OMEPRAZOLE 20 MG CAPSULE DR 40 MG PO (06:08)
--- NOTE | 2024-09-29 06:25 | PC.NURSE ---
End of shift note [id number]: Pt A&O to self only. Comfort care protocol in place. Pt requires assist of 2 with repositioning in bed and has been incontinent of bladder with external catheter in place. Fentanyl patch removed from R shoulder last evening per order. Pt needs medications crushed/capsules opened in applesauce. Pt slept well overnight with no verbal or nonverbal indications of pain noted. Coloplast dressing to coccyx C/D/I. Bed alarm on and call light within reach.
[2024-09-29] MEDS: fentaNYL 25 MCG/HR PATCH 1 PATCH TRANSDERMA (07:50)
--- NOTE | 2024-09-29 13:13 | PC.SOCIAL ---
Discharge planning: floorworker lasting attempted to meet with the pt today to discuss getting her HCD directive completed, but the pt was too sleepy and would barely open her eyes. Social work to follow-up as needed.
--- NOTE | 2024-09-29 14:52 | PC.NURSE ---
End of Shift Note: Patient has been turned and repositioned every two hours today. Has not really responded much to me only open her eyes once and said Hi. Will continue monitor until the next shift arrives
--- NOTE | 2024-09-29 16:00 | P.IMPN_ITS ---
Assessment and Plan Assessment and plan (1) Disseminated malignancy of unknown primary: Problem comment: - diffuse adenopathy, presumably lymphoma - patient has declined workup and we are pursuing comfort-focused care and hospice placement Status: Acute (2) Metabolic encephalopathy: Problem comment: - severely impaired cognitive function on admission 09/16/2024, found at home unable to get out of bed, care for herself or call for help - improved with initial cares but in a slow steady decline; sedated for comfort. Status: Acute (3) Acute kidney injury: Problem comment: - creatinine 1.2 on 09/06/2024. Creatinine 2.6 on this admission. Creatinine improved to 1.6, likely prerenal/dehydration - no longer following labs Status: Acute (4) Lymphadenopathy, generalized: Problem comment: - CT C/A/P 09/16/2024: 1. Demonstration of markedly pathologic lymph nodes seen throughout the chest, abdomen and pelvis most prominently within the right axilla and left lower quadrant mesentery with a conglomerate up to 14 centimeter lymph node mass in the left lower quadrant abdomen. There is moderate omental caking. Overall, findings are concerning for likely lymphoproliferative malignancy such as lymp myrna. Correlate with history of malignancy and/or follow-up with percutaneous tissue sampling of easily accessible lymph node in the right axilla for improved characterization. - has since declined biopsy of her right axillary lymphadenopathy to get a pathologic diagnosis Status: Acute (5) Hypercalcemia: Problem comment: - calcium 11.9 on 09/06/2024. Calcium improved from 11.5 on admission to 8.9 with hydration - No longer following labs Status: Acute (6) History of atrial flutter: Problem comment: - admitted on Eliquis and metoprolol, currently in sinus rhythm - Eliquis and metoprolol have been d/c'd as not consistent with goals of care Status: Acute (7) Major depression: Problem comment: - Cymbalta and bupropion are being weaned off; pt is terminally sedated. Status: Acute (8) Weakness generalized: Problem comment: - Relatively profound bilateral lower extremity weakness that is now affecting her upper extremities and is progressively worsening. She can no longer sit up, stand up, or hold utensils without assistance. She is fully supported for repositioning. - As recently as 2 weeks prior to admission was able to get into her son's truck on her own power. Status: Acute (9) Palliative care encounter: Problem comment: - patient and family aware of terminal status, comfortable with comfort-focused measures Status: Acute (10) Cognitive impairment: Problem comment: -as a baseline; improved the first few days of admission but she now only orientated to person. Status: Acute Subjective Date Seen: 09/29/24 Interval history: Daily Progress Note - Hospital #: 14 CC: Cognitive decline; metastatic cancer (presumed lymphoma without workup) 24 HOUR UPDATE: Vic is barely arousable this morning. She whispers her name and then falls back to sleep. Tolerating small amounts of po intake. Current medications include: - fentanyl patch and pepcid with other comfort care protocol meds - Cymbalta, bupropion from home meds are being weaned off Notable Labs, Micro, Rads, Interventions: none No change in exam from previous encounters. Disposition/Potential discharge - waiting list for [facility]; MA application filed and we are looking for a hospice bed within a SNF that will take MA pending patients. Today I spent 50minutes seeing the patient, reviewing Expanse and EPIC notes/diagnostics, discussing the care plan with our care time that includes social work, PT/OT, pharmacy, RT, fci and documenting my impressions and plan in the medical record.
[2024-09-29] MEDS: ACETAMINOPHEN 325 MG TABLET PO (20:14)
--- NOTE | 2024-09-29 22:50 | PC.NURSE ---
Shift note [id number]): The pt has been sleeping throughout the shift- open her eyes when calling her name and drifted back to sleep-very lethargic. No oral medication given as the patient is not able to swallow. The Pt's daughter, Vandana, called in via telephone- the status of the patient was updated ; Vandana would like to be called via Telephone when the status of the patient is changed. The pt had low grade fever 100.8 degree F; Per Dr Leslie, PO Tylenol was given rectally with fever improved to 99.5 degree F. Wound noted to buttock,covered with dressing.
[2024-09-30] MEDS: MORPHINE 10 MG/0.5 ML ORAL SOLN PO ×5 (01:48→11:12)
[2024-09-30] MEDS: LORazepam 1 MG TABLET PO ×2 (05:09→06:30)
--- NOTE | 2024-09-30 07:03 | PC.NURSE ---
End of shift report ([id number]): Pt on comfort cares. Pt appeared to be uncomfortable, prn morphine and Ativan given. Pt turned, repositioned and changed throughout shift. Purewick replaced. Pt in bed, appears to be comfortable. ?
[2024-09-30] MEDS: fentaNYL 50 MCG/HR PATCH 1 PATCH TRANSDERMA (08:30)
--- NOTE | 2024-09-30 09:00 | NUTR.NU ---
RDN with LOS note. Patient is currently comfort cares. Per MD during IDT, patient is end of life. Not appropriate for visit at this time.
--- NOTE | 2024-09-30 10:59 | P.IMPN_ITS ---
Assessment and Plan Assessment and plan (1) Palliative care encounter: Problem comment: - patient and family aware of imminent transition expectation. Terminal sedation. I increased her fentanyl this morning from 25-50 mcg via transdermal on 09/30. Status: Acute (2) Disseminated malignancy of unknown primary: Problem comment: - diffuse adenopathy, presumably lymphoma - patient has declined workup and we are pursuing comfort-focused care and hospice placement Status: Acute (3) Metabolic encephalopathy: Problem comment: - severely impaired cognitive function on admission 09/16/2024, found at home unable to get out of bed, care for herself or call for help - improved with initial cares but in a slow steady decline; sedated for comfort. Status: Acute (4) Acute kidney injury: Problem comment: - creatinine 1.2 on 09/06/2024. Creatinine 2.6 on this admission. Creatinine improved to 1.6, likely prerenal/dehydration - no longer following labs Status: Acute (5) Lymphadenopathy, generalized: Problem comment: - CT C/A/P 09/16/2024: 1. Demonstration of markedly pathologic lymph nodes seen throughout the chest, abdomen and pelvis most prominently within the right axilla and left lower quadrant mesentery with a conglomerate up to 14 centimeter lymph node mass in the left lower quadrant abdomen. There is moderate omental caking. Overall, findings are concerning for likely lymphoproliferative malignancy such as lymphoma. Correlate with history of malignancy and/or follow-up with percutaneous tissue sampling of easily accessible lymph node in the right axilla for improved characterization. - has since declined biopsy of her right axillary lymphadenopathy to get a pathologic diagnosis Status: Acute (6) Hypercalcemia: Problem comment: - calcium 11.9 on 09/06/2024. Calcium improved from 11.5 on admission to 8.9 with hydration - No longer following labs Status: Acute (7) History of atrial flutter: Problem comment: - admitted on Eliquis and metoprolol, currently in sinus rhythm - Eliquis and metoprolol have been d/c'd as not consistent with goals of care Status: Acute (8) Major depression: Problem comment: - Cymbalta and bupropion are being weaned off; pt is terminally sedated. Status: Acute (9) Weakness generalized: Problem comment: - Relatively profound bilateral lower extremity weakness that is now affecting her upper extremities and is progressively worsening. She can no longer sit up, stand up, or hold utensils without assistance. She is fully supported for repositioning. - As recently as 2 weeks prior to admission was able to get into her son's truck on her own power. Status: Acute (10) Cognitive impairment: Problem comment: -as a baseline; improved the first few days of admission but she now only orientated to person. 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 she is having some verbalization - soft moans without grimace. RN reports more pain with repo. No longer taking PO. Current medications include: - fentanyl patch and pepcid with other comfort care protocol meds - Cymbalta, bupropion from home meds are being weaned off - and now with unresponsive - pt is no longer taking. Notable Labs, Micro, Rads, Interventions: none No change in exam from previous encounters. Disposition/Potential discharge - waiting list for [facility]; MA application filed and we are looking for a hospice bed within a SNF that will take MA pending patients HOWEVER patient is now imminent and i expect a natural in the next 24-48 hours. Today I spent 50minutes seeing the patient, reviewing Expanse and EPIC notes/diagnostics, discussing the care plan with our care time that includes social work, PT/OT, pharmacy, RT, shelter and documenting my impressions and plan in the medical record.
--- NOTE | 2024-09-30 11:14 | PC.SOCIAL ---
Discharge planning: addiction social worker spoke with Aneesh at [facility] today. Confirmed with Aneesh that Vic is still on the waitlist. addiction social worker also informed Aneesh that the provider on duty at the hospital informed this worker this morning that the pt may pass over the weekend. addiction social worker will check-in with Aneesh on Thursday regarding pt and if she should still remain on the waitlist. Social work to follow-up as needed.
--- NOTE | 2024-09-30 14:46 | PC.NURSE ---
Nursing Care Hours: [id number] Pt this shift was restless and moaning in bed upon arrival. Pt given pain meds given buccally and reposition pt. Also applied calming aromatherapy patch. New fentanyl dose patch applied. Pt resting comfortably and being repositioned every 2-3 hours. Oral cares done. RR 27, pulse 118, spo2 85%. U/o 300ml with external cath. Not taking anything PO
[2024-09-30 17:00] VITALS: PULSE 123; RESP 24; TEMP 39.4; O2SAT 84
[2024-09-30 17:02] VITALS: TEMP 39.4
[2024-09-30] MEDS: ACETAMINOPHEN 650 MG SUPP PR (17:02)
[2024-09-30 18:10] VITALS: TEMP 39.4
--- NOTE | 2024-09-30 19:13 | PC.NURSE ---
End of shift-- Pt unresponsive and on comfort cares. Temp 103F axillary and pt was given rectal Tylenol. Recheck 102.9F . HR 123. RR 24-26, SPO2 84% on RA. Repositioned only this shift. External catheter patent and draining minimal amounts of yellow urine.
[2024-10-01] MEDS: MORPHINE 10 MG/0.5 ML ORAL SOLN PO ×7 (01:01→11:07)
[2024-10-01] MEDS: LORazepam 1 MG TABLET PO (01:40)
[2024-10-01] MEDS: HYOSCYAMINE SULFATE 0.125 MG TAB SUBLINGUAL ×3 (01:40→12:13)
--- NOTE | 2024-10-01 06:22 | PC.NURSE ---
End of shift [id number]: Pt unresponsive and on comfort cares. Hot to touch. Repo q2h. Brief assessed and changed. Purewick replaced. Patent and draining. See MAR for pharmacologic interventions. Pt appeared agitated, relief noted with PRN medications. Suctioning also used at bedside to increase comfort, increased secretions throughout the night.
[2024-10-01 07:45] VITALS: PULSE 126; RESP 18; TEMP 39.7; O2SAT 72
[2024-10-01 08:54] VITALS: TEMP 39.7
[2024-10-01] MEDS: ACETAMINOPHEN 650 MG SUPP PR (08:54)
--- NOTE | 2024-10-01 09:25 | P.IMPN_ITS ---
Assessment and Plan Assessment and plan (1) Palliative care encounter: Problem comment: - patient and family aware of imminent transition expectation. Terminal sedation. I increased her fentanyl this morning from 25-50 mcg via transdermal on 09/30 - oral medications discontinued. IV comfort care meds as needed Status: Acute (2) Disseminated malignancy of unknown primary: Problem comment: - diffuse adenopathy, presumably lymphoma - patient has declined workup and we are pursuing comfort-focused care and hospice placement Status: Acute (3) Metabolic encephalopathy: Problem comment: - severely impaired cognitive function on admission 09/16/2024, found at home unable to get out of bed, care for herself or call for help - improved with initial cares but in a slow steady decline; sedated for comfort. Status: Acute (4) Acute kidney injury: Problem comment: - creatinine 1.2 on 09/06/2024. Creatinine 2.6 on this admission. Creatinine improved to 1.6, likely prerenal/dehydration - no longer following labs Status: Acute (5) Lymphadenopathy, generalized: Problem comment: - CT C/A/P 09/16/2024: 1. Demonstration of markedly pathologic lymph nodes seen throughout the chest, abdomen and pelvis most prominently within the right axilla and left lower quadrant mesentery with a conglomerate up to 14 centimeter lymph node mass in the left lower quadrant abdomen. There is moderate omental caking. Overall, findings are concerning for likely lymphoproliferative malignancy such as lymphoma. Correlate with history of malignancy and/or follow-up with percutaneous tissue sampling of easily accessible lymph node in the right axilla for improved characterization. - has since declined biopsy of her right axillary lymphadenopathy to get a pathologic diagnosis Status: Acute (6) Hypercalcemia: Problem comment: - calcium 11.9 on 09/06/2024. Calcium improved from 11.5 on admission to 8.9 with hydration - No longer following labs Status: Acute (7) History of atrial flutter: Problem comment: - admitted on Eliquis and metoprolol, currently in sinus rhythm - Eliquis and metoprolol have been d/c'd as not consistent with goals of care Status: Acute (8) Major depression: Problem comment: - Cymbalta and bupropion discontinued; pt is terminally sedated. Status: Acute (9) Weakness generalized: Problem comment: - Relatively profound bilateral lower extremity weakness that is now affecting her upper extremities and is progressively worsening. She can no longer sit up, stand up, or hold utensils without assistance. She is fully supported for repositioning. - As recently as 2 weeks prior to admission was able to get into her son's truck on her own power. Status: Acute (10) Cognitive impairment: Problem comment: -as a baseline; improved the first few days of admission but she now only orientated to person. No longer responding, interacting Status: Acute Total Time Spent Total Time Spent: Today I spent 45 minutes seeing the patient, reviewing Expanse and EPIC notes/diagnostics, discussing the care plan with our care time that includes social work, PT/OT, pharmacy, RT, detention and documenting my impressions and plan in the medical record. 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 Sonorous, coarse breath sounds. Developed a fever yesterday, 103.5 currently, tachycardic in the 120s, oxygen saturation low 80s on room air Current medications include: - fentanyl patch and other comfort care protocol meds - have discontinued all oral medications as patient is unable. IV medications as needed for comfort cares Notable Labs, Micro, Rads, Interventions: none Disposition/Potential discharge - waiting list for [facility]; MA application filed and we are looking for a hospice bed within a SNF that will take MA pending patients HOWEVER patient is now imminent and i expect a natural in the next 24-48 hours. Today I spent 45 minutes seeing the patient, reviewing Expanse and EPIC notes/diagnostics, discussing the care plan with our care time that includes social work, PT/OT, pharmacy, RT, detention and documenting my impressions and plan in the medical record. Exam Narrative: Exam Narrative: PHYSICAL EXAM General: Unarousable, sonorous Cardiovascular: Tachycardic Pulmonary: Sonorous, coarse breath sounds Skin: Warm to touch in setting of fever
[2024-10-01 12:09] VITALS: TEMP 40.4
--- NOTE | 2024-10-01 12:40 | P.DS_ITS ---
Discharge Sum: Prov Provider Date Seen: 10/01/24 Primary care physician: Nyla Moreno MD Consults: 09/16/24 16:46 Consult to Occupational Therapy [CONS] Routine Comment: Reason(s) for OT Consult:: Evaluate and Treat Any Restrictions?:: No Restrictions Consult to Physical Therapy [CONS] Routine Comment: Reason(s) for PT Consult:: Evaluate and Treat Any Restrictions?:: No Restrictions Consult to [facility] [CONS] Routine Comment: Reason for Consult:: Discharge Planning Needs 09/19/24 07:48 Consult to Speech Therapy [CONS] Routine Comment: Reason(s) for Speech Consult:: Swallowing Difficulty Pronouncing clinician: Stella Mejía Discharge Sum: Diag Contributing Factors (1) Disseminated malignancy of unknown primary: Contributing factors: Diffuse adenopathy. Presumed lymphoma. (2) Metabolic encephalopathy: Contributing factors: Severely impaired cognitive function without significant improvement. (3) Acute kidney injury: Contributing factors: Creatinine 2.6 on admission -> improved to 1.6. Suspected dehydration/pre renal. When transitioned into comfort cares, no further labs were drawn to trend. (4) Lymphadenopathy, generalized: Contributing factors: CT C/A/P 09/16/2024: Demonstration of markedly pathologic lymph nodes seen throughout the chest, abdomen and pelvis most prominently within the right axilla and left lower quadrant mesentery with a conglomerate up to 14 centimeter lymph node mass in the left lower quadrant abdomen. There is moderate omental caking. Overall, findings are concerning for likely lymphoproliferative malignancy such as lymphoma. Correlate with history of malignancy and/or follow-up with percutaneous tissue sampling of easily accessible lymph node in the right axilla for improved characterization. (5) Hypercalcemia: Contributing factors: 11.9 -> 11.5 -> 8.9 following hydration. No further labs drawn following comfort care decision. (6) History of atrial flutter: Contributing factors: Managed with Eliquis and metoprolol, discontinued at time of decision for comfort cares (7) Major depression: Contributing factors: Managed with Cymbalta and bupropion, discontinued at time of decision for comfort cares (8) Weakness generalized: Contributing factors: Profound weakness, no longer able to sit up, stand up, or complete ADLs without assistance. Required full support for repositioning. (9) Cognitive impairment: Contributing factors: Declined. No longer responding or interacting prior to (10) Fever of unknown origin: Contributing factors: Developed fever 103? on 09/30/2024. 104.8? on 10/01/2024 shortly before her deathTachycardicHypoxia into the 70s Discharge Sum: Summary Date and Time Date of admission: 09/16/24 16:44 Date of : 10/01/24 Time of : 12:15 Summary Details: Patient was admitted to the hospital on 09/16/2024 following a welfare check where patient was found in her feces and urine with slurred speech. Admitting diagnoses as above with incidental finding of disseminated malignancy of unknown primary following workup. Decision was made by family and patient to forego further investigation. Conversation on 09/19/2024 with patient and her daughter and by phone her 2 sons to discuss her poor prognosis with unknown cancer diagnosis and severely failing health. She seems to understand her serious illness and was quite ready to accept this terminal diagnosis and a transition to hospice care. Prognosis is a few weeks. Decision was made for comfort cares. Awaiting hospice placement, patient developed a fever of 103? on 09/30/2024, with tachycardia and hypoxia. Over 24 hours, fever increased to 104.8? on 10/01/2024, with ongoing tachycardia in oxygen saturations into the 70s, shortly before her . Additional Data Confirmation of as documented by pronouncing clinician: no pulse, no respirations, no heart sounds and pupils fixed and dilated Family: contacted Additional persons at bedside: other Attending physician: Stella Mejía, [facility], PA-C [facility] Was code activated?: No Autopsy requested?: No mail distribution scheme examiner notified?: Yes Organ bank notified?: Yes Advance directives: Yes Hospice patient?: No Total time spent: Today I spent 75 minutes seeing the patient, reviewing Expanse and EPIC notes/diagnostics, discussing the care plan with our care time that includes social work, PT/OT, pharmacy, RT, senior care and documenting my impressions and plan in the medical record.
--- NOTE | 2024-10-01 15:44 | PC.NURSE ---
Pt - Comfort care only patient. This morning patient was noted to have temp of 103.5 F axillary. She was given Tylenol with no improvement. Heart rate 126. RR 18 and rattling. 72% on RA. Pt appeared to be nearing end of life and daughter Enid was updated at 09:36 that pt's was anticipated within hours. One visitor stopped by briefly and spoke to patient. Nursing then took turns sitting with patient until she at 12:15. [employer] was contacted by charge nurse and pt was ruled out as a candidate for organ donation. Daughter was notified by this nurse of pt's and chose [facility] [place] and [facility] as home. home was notified and picked up body and belongings at 1445.
== END 2024-10-01 14:45 | disposition expired | DRG 843 ==
LOC: ED 13:29 → MEDSURG 14:24
PROVIDERS: Admitting Provider Family Medicine; Emergency Provider Family Medicine; PCP Family Medicine; Visit Provider Family Medicine
DX: C80.0 Disseminated malignant neoplasm, unspecified (principal); G93.41 Metabolic encephalopathy; N17.9 Acute kidney failure, unspecified; N39.0 Urinary tract infection, site not specified; C80.1 Malignant (primary) neoplasm, unspecified; R47.81 Slurred speech; E86.0 Dehydration; R59.1 Generalized enlarged lymph nodes; R53.1 Weakness; M79.7 Fibromyalgia; M81.0 Age-related osteoporosis without current pathological fracture; F32.9 Major depressive disorder, single episode, unspecified; R63.4 Abnormal weight loss; R50.9 Fever, unspecified; E83.52 Hypercalcemia; Z86.79 Personal history of other diseases of the circulatory system; Z51.5 Encounter for palliative care; N63.31 Unspecified lump in axillary tail of the right breast; G31.84 Mild cognitive impairment of uncertain or unknown etiology
CPT/HCPCS: 36415; 51702; 70450; 70551; 71250; 74176; 80048; 80053; 80076; 80306; 81001; 82077; 82248; 82310; 82550; 83036; 83540; 83550; 83605; 83735; 83880; 83970; 84443; 84484; 85025; 85610; 85730; 86140; 87040; 87086; 87631; 93005; 94761; 97162; 97165; 97530; 97535; 99284; 99285; A9270; J2060; J2405; J3480; J7030